=== PATIENT | female | born 1955 | race American Indian/Alaskan Native ===

== ENCOUNTER 2019-02-27 18:15 | Inpatient (IN) | payer MEDICAID ==
[2019-02-27 19:44] LABS: Basophils % (Auto) 0.2 % (0.0-1.8); Eosinophils % (Auto) 0.4 % (0.0-4.3); Lymphocytes # (Auto) 1.5 K/mm3 (1.2-5.4); Lymphocytes % (Auto) 18.4 % (13.4-35.0); Mean Corpuscular HGB Conc 34 % (30-34); Mean Corpuscular Volume 91 fl (79-97); Monocytes # (Auto) 0.4 K/mm3 (0.0-0.8); Monocytes % (Auto) 5.3 % (0.0-7.3); Platelet Count 204 K/mm3 (140-440); Red Blood Count 1.89 M/mm3 (3.65-5.03); Red Cell Distribution Width 18.9 % (13.2-15.2)
[2019-02-27 19:49] LABS: Hematocrit 17.2 % (30.3-42.9); Hemoglobin 5.9 gm/dl (10.1-14.3)
[2019-02-27 19:51] LABS: INR 1.13 (0.87-1.13)
[2019-02-27 19:52] LABS: Partial Thromboplastin Time 23.6 Sec. (24.2-36.6)
[2019-02-27 20:02] LABS: BUN/Creatinine Ratio 55; Blood Urea Nitrogen 44 mg/dL (7-17); Calcium 8.1 mg/dL (8.4-10.2); Hemolysis Index 9
[2019-02-27] MEDS ORDERED: NACL 0.9% 500 ML 500 ML IV ONE ×2 (20:09→23:45)
[2019-02-27] MEDS ORDERED: ATIVAN IV ONE (20:09)
[2019-02-27] MEDS ORDERED: ATIVAN ONE (20:12)
--- NOTE | 2019-02-27 20:15 | Emergency Department Report ---
ED Chest Pain HPI - General Chief Complaint: Chest Pain Stated Complaint: CHEST PAIN Time Seen by Provider: 02/27/19 18:31 Source: patient, EMS Mode of arrival: Stretcher Limitations: Physical Limitation - History of Present Illness Initial Comments: 63-year-old female, currently resides in [place], with history of CHF w/ pacemaker and on a milrinone drip, CAD, COPD, anxiety presents to ED with complaint of chest pain since this morning, became worse this afternoon. States pain is substernal, radiating into left arm. Reports SOB due to her oxygen tank running out. Pt chronically on 3-3.5L O2 at home. Pt crying and anxious, but denies chest pain at this time. Given aspirin by EMS. -: This morning Onset: during rest Pain Location: substernal Pain Radiation: LUE Severity: moderate Quality: sharp Consistency: constant, now resolved Improves With: nothing Worsens With: nothing re: dyspnea. denies: nausea, vomting, diaphoresis - Related Data Home Medications Medication Instructions Recorded Confirmed Last Taken Amiodarone HCl [Pacerone] 400 mg PO DAILY 08/27/18 09/28/18 09/28/18 AtorvaSTATin [Lipitor] 80 mg PO DAILY 08/27/18 09/28/18 09/28/18 Carvedilol [Coreg] 3.125 mg PO BID 08/27/18 09/28/18 09/28/18 Docusate Sodium [Stool Softener] 100 mg PO BID 08/27/18 09/28/18 09/28/18 Losartan Potassium 12.5 mg PO DAILY 08/27/18 09/28/18 09/28/18 Magnesium Oxide 400 mg PO DAILY 08/27/18 09/28/18 09/28/18 Pantoprazole Sodium 40 mg PO DAILY 08/27/18 09/28/18 09/28/18 Spironolactone 37.5 mg PO DAILY 08/27/18 09/28/18 09/28/18 hydrOXYzine HCl [Hydroxyzine HCl] 25 mg PO TID 08/27/18 09/28/18 09/28/18 Previous Rx's Medication Instructions Recorded Last Taken Type ALBUTEROL NEB's [Proventil 0.083% 2.5 mg IH Q4HRT PRN #30 nebu 10/06/18 Unknown Rx NEBS] Aspirin EC [Aspirin Enteric Coated 81 mg PO DAILY #30 tablet 10/06/18 Unknown Rx TAB] Bumetanide [Bumex 1 mg tab] 1 mg PO QDAY #30 tablet 10/06/18 Unknown Rx Clopidogrel [Plavix] 75 mg PO QDAY #30 tablet 10/06/18 Unknown Rx Gabapentin [Neurontin] 600 mg PO TID #90 tablet 10/06/18 Unknown Rx Insulin Glargine [Lantus VIAL] 30 units SUB-Q DAILY 30 Days units 10/06/18 Unknown Rx Levothyroxine [Synthroid] 25 mcg PO DAILY #30 tablet 10/06/18 Unknown Rx oxyCODONE /ACETAMINOPHEN [Percocet 1 tab PO Q8H PRN #6 tablet 10/06/18 Unknown Rx 5/325 mg] Allergies Allergy/AdvReac Type Severity Reaction Status Date / Time No Known Allergies Allergy Unverified 08/27/18 09:22 Heart Score - HEART Score History: Slightly suspicious EKG: Non-specific Age: 45-65 Risk factors: > 3 risk factors or hx of atherosclerotic disease Troponin: < normal limit HEART Score: 4 ED Review of Systems ROS: Stated complaint: CHEST PAIN Other details as noted in HPI Comment: All other systems reviewed and negative Respiratory: shortness of breath Cardiovascular: chest pain Gastrointestinal: denies: abdominal pain, nausea, vomiting ED Past Medical Hx - Past Medical History Hx CVA: Yes Hx Asthma: Yes Hx COPD: Yes - Surgical History Past Surgical History?: Yes Hx Pacemaker: Yes - Social History Smoking Status: Unknown if ever smoked - Medications Home Medications: Home Medications Medication Instructions Recorded Confirmed Last Taken Type Amiodarone HCl [Pacerone] 400 mg PO DAILY 08/27/18 09/28/18 09/28/18 History AtorvaSTATin [Lipitor] 80 mg PO DAILY 08/27/18 09/28/18 09/28/18 History Carvedilol [Coreg] 3.125 mg PO BID 08/27/18 09/28/18 09/28/18 History Docusate Sodium [Stool Softener] 100 mg PO BID 08/27/18 09/28/18 09/28/18 History Losartan Potassium 12.5 mg PO DAILY 08/27/18 09/28/18 09/28/18 History Magnesium Oxide 400 mg PO DAILY 08/27/18 09/28/18 09/28/18 History Pantoprazole Sodium 40 mg PO DAILY 08/27/18 09/28/18 09/28/18 History Spironolactone 37.5 mg PO DAILY 08/27/18 09/28/18 09/28/18 History hydrOXYzine HCl [Hydroxyzine HCl] 25 mg PO TID 08/27/18 09/28/18 09/28/18 History ALBUTEROL NEB's [Proventil 0.083% 2.5 mg IH Q4HRT PRN #30 nebu 10/06/18 Unknown Rx NEBS] Aspirin EC [Aspirin Enteric Coated 81 mg PO DAILY #30 tablet 10/06/18 Unknown Rx TAB] Bumetanide [Bumex 1 mg tab] 1 mg PO QDAY #30 tablet 10/06/18 Unknown Rx Clopidogrel [Plavix] 75 mg PO QDAY #30 tablet 10/06/18 Unknown Rx Gabapentin [Neurontin] 600 mg PO TID #90 tablet 10/06/18 Unknown Rx Insulin Glargine [Lantus VIAL] 30 units SUB-Q DAILY 30 Days units 10/06/18 Unknown Rx Levothyroxine [Synthroid] 25 mcg PO DAILY #30 tablet 10/06/18 Unknown Rx oxyCODONE /ACETAMINOPHEN [Percocet 1 tab PO Q8H PRN #6 tablet 10/06/18 Unknown Rx 5/325 mg] ED Physical Exam - General Limitations: Physical Limitation General appearance: alert, in no apparent distress, anxious - Head Head exam: Present: atraumatic, normocephalic - Eye Eye exam: Present: normal appearance - ENT ENT exam: Present: mucous membranes moist - Neck Neck exam: Present: normal inspection - Respiratory Respiratory exam: Present: normal lung sounds bilaterally. Absent: respiratory distress - Cardiovascular Cardiovascular Exam: Present: regular rate, normal rhythm - GI/Abdominal GI/Abdominal exam: Present: soft. Absent: distended, tenderness - Rectal Rectal exam: Present: heme (+) stool, black stool - Extremities Exam Extremities exam: Present: normal inspection - Neurological Exam Neurological exam: Present: alert, oriented X3 - Psychiatric Psychiatric exam: Present: normal affect, normal mood - Skin Skin exam: Present: warm, dry, intact, normal color ED Course Vital Signs 02/27/19 02/27/19 02/27/19 18:27 19:33 20:00 Temperature 97.6 F Pulse Rate 65 89 91 H Respiratory 20 19 20 Rate Blood Pressure 104/62 121/64 Blood Pressure 117/60 [Left] O2 Sat by Pulse 100 93 100 Oximetry - Reevaluation(s) Reevaluation #1: 02/27/19 20:08 Hb 5.9. Pt reports dark stools since yesterday. Takes plavix. On exam, melanotic stool, guiac positive. - Consultations Consultation #1: 02/27/19 21:19 Spoke w/ Dr Sigifredo Kuo GI. Aware of pt. Will see in the AM. ED Medical Decision Making - Lab Data Result diagrams: 02/27/19 19:30 02/27/19 19:30 - EKG Data -: EKG Interpreted by Me EKG shows normal: sinus rhythm Rate: normal - EKG Data When compared to previous EKG there are: no significant change (compared to 08/2018) Interpretation: other (prolonged QT, T wave inversions laterally) - Radiology Data Radiology results: report reviewed, image reviewed - Medical Decision Making 63-year-old female from [place] with history of CHF w/ pacemaker and on a milrinone drip, CAD, COPD, anxiety presents to ED with complaint of chest pain since this morning, became worse this afternoon. States pain is substernal, radiating into left arm. Troponin negative, EKG unchanged compared to 2017. Hb 5.9, pt has melena on rectal exam. One unit PRBCs ordered for transfusion. Protonix bolus and drip administered. Spoke w/ Dr Kuo, GI. Will see in the AM. Spoke w/ hospitalist, Dr Fritz, will admit. - Differential Diagnosis ACS, acute anemia, bleeding ulcer, malignancy Critical Care Time: Yes Critical care time in (mins) excluding proc time.: 35 Critical care attestation.: If time is entered above; I have spent that time in minutes in the direct care of this critically ill patient, excluding procedure time. Critical Care Time: 35 min ED Disposition Clinical Impression: Chest pain, Anemia, GI bleed Disposition: OP ADMIT IP TO THIS HOSP Is pt being admited?: Yes Condition: Stable Time of Disposition: 20:19
[2019-02-27] MEDS ORDERED: PROTONIX IV ONE (20:18)
--- NOTE | 2019-02-27 20:18 | XRay Report ---
PROCEDURE: XR CHEST 1V AP TECHNIQUE: Chest radiograph single view. HISTORY: chest pain COMPARISONS: 09/28/2018 . FINDINGS: Heart: Heart is enlarged. Mediastinum/Vessels: Normal. Lungs/Pleural space: Lungs are expanded and clear. There are no infiltrates, effusions or pneumothor aces.. Bony thorax: No acute osseous abnormality. Life support devices: There is a right-sided central venous catheter with tip in superior vena cava. Pacemaker leads are in proper position.. IMPRESSION: Heart is enlarged. Lungs are expanded and clear. There are no infiltrates, effusions or pneumothoraces.. There is a right-sided central venous catheter with tip in superior vena cava. Pacemaker leads are in proper position... This document is electronically signed by Dharmesh Montes MD., February 27 2019 08:16:10 PM ET
[2019-02-27] MEDS: PROTONIX 80 MG in NACL 0.9% 100 ML IV SCH (21:10)
[2019-02-27] MEDS ORDERED: ATIVAN IV PRN (22:10)
[2019-02-27] MEDS ORDERED: TYLENOL PR PRN (22:11)
[2019-02-27] MEDS ORDERED: ZOFRAN IV PRN (22:11)
[2019-02-28] MEDS ORDERED: NITROSTAT SL PRN (05:12)
[2019-02-28 05:44] LABS: Hematocrit 21.6 % (30.3-42.9); Hemoglobin 7.4 gm/dl (10.1-14.3)
[2019-02-28] MEDS: PROTONIX 80 MG in NACL 0.9% 100 ML IV SCH (05:49)
--- NOTE | 2019-02-28 06:03 | History and Physical Report ---
CHIEF COMPLAINT: Chest pain. Other complaint include dark stool or melena stool. HISTORY OF PRESENT ILLNESS: The patient is a 63-year-old female, who is currently staying in [place] and presented with complaint of chest pain that started in the morning of 02/27/2019. The patient said the pain became increasingly worse and said the pain is substernal in location, radiating to the left arm and was associated with shortness of breath. The patient also complained of anxiety and presence of dark stool going on for some time. There is no history of abdominal pain and no history of nausea or vomiting or hematemesis or hematochezia. The patient was seen and evaluated in the Emergency Room. PAST MEDICAL HISTORY: Pertinent for cerebrovascular accident, asthma, COPD and CHF. PAST SURGICAL HISTORY: Pertinent for pacemaker placement. FAMILY HISTORY: Noncontributory. SOCIAL HISTORY: The patient does not smoke, does not drink alcohol and does not use illicit drugs. MEDICATIONS: The patient is on amiodarone 400 mg by mouth daily, Lipitor 80 mg by mouth daily, Coreg 3.125 mg by mouth twice daily, stool softener, docusate sodium 100 mg by mouth twice daily, losartan potassium 12.5 mg by mouth daily, magnesium oxide 400 mg by mouth daily, pantoprazole 40 mg by mouth daily, spironolactone dose not clear, hydroxyzine hydrochloride 25 mg by mouth 3 times daily, albuterol nebulizer 2.5 mg every 4 hours as needed for shortness of breath, aspirin 81 mg daily, Bumex or bumetanide 1 mg by mouth daily, Plavix 75 mg by mouth daily, gabapentin or Neurontin 600 mg by mouth 3 times daily, Lantus insulin 30 units subcutaneous daily, levothyroxine or Synthroid 25 mcg by mouth daily, Percocet, oxycodone/acetaminophen 5/325 one by mouth every 8 hours as needed for fever and headache. ALLERGIES: There are no known drug allergies. REVIEW OF SYSTEMS: CONSTITUTIONAL: There is no fever, no chills, no diaphoresis. HEENT: There is no headache or sore throat. CARDIOVASCULAR SYSTEM: There is chest pain, but no orthopnea. RESPIRATORY SYSTEM: Shortness of breath is present and no cough. GASTROINTESTINAL SYSTEM: There is no nausea, no vomiting, no abdominal pain, diarrhea or constipation; however, there is dark stool or melena stool. NEUROLOGICAL SYSTEM: There is no numbness, no dizziness, no altered mental status. MUSCULOSKELETAL SYSTEM: There is no joint pain or swelling. DERMATOLOGICAL SYSTEM: There is no skin rash or itching. GENITOURINARY SYSTEM: There is no dysuria, hematuria, or flank pain. Rest of system review is normal. PHYSICAL EXAMINATION: GENERAL: At the time of exam, the patient was found to be alert, oriented x 3 and not in acute distress. VITAL SIGNS: Shows temperature of 97.6 degrees Fahrenheit, pulse of 65, respirations 20, blood pressure 104/62, O2 sat of 100% on room air. HEENT: Showed pupils to be equal, round, and reactive to light and accommodating. Extraocular muscles are intact. NECK: Supple with no JVD or carotid bruit. CARDIOVASCULAR SYSTEM: Showed normal first and second heart sounds with no gallops or murmurs. RESPIRATORY SYSTEM: Show good air entry on both sides of the lungs with no abnormal breath sounds. GASTROINTESTINAL SYSTEM: Show abdomen to be full, soft, nontender with no organomegaly or rigidity. NEUROLOGICAL: Shows no focal deficit. MUSCULOSKELETAL SYSTEM: Show no joint swelling or tenderness. DERMATOLOGICAL SYSTEM: Show no skin rash. GENITOURINARY SYSTEM: Showing no costovertebral angle tenderness. PERTINENT LABORATORY DATA AND IMAGING STUDIES: The patient had chest x-ray done that shows enlarged heart with clear lung and the x-ray shows right-sided central venous catheter with tip in the superior vena cava and pacemaker leads are in the proper position according to the radiologist. Lab results, the patient has CBC done with normal white count, low hemoglobin of 5.9 and low hematocrit of 17.2 with normal MCV and elevated RDW of 18.9. The patient's CBC differential showed high segmented neutrophil count of 75.7%. Coagulation studies were unremarkable. The patient's chemistry shows slight decrease in sodium level of 136 with normal potassium, normal chloride and elevated BUN of 44 and elevated brain natriuretic peptide level of 1649.Patient's stool is quiac positive DIAGNOSES: 1. Chest pain. 2. Gastrointestinal bleed. 3. Anemia. 4. Anxiety disorder. PLAN: 1. The patient will be admitted to telemetry. 2. The patient will have serial cardiac enzymes involving troponin, total CK and CK-MB checked every 6 hours x 2 more levels. 3. The patient will have hemoglobin and hematocrit checked every 6 hours x 3 more levels. 4. The patient will have Gastroenterology consult with Dr. Alvaro Kuo of [facility] for management of GI bleed. 5. The patient will be n.p.o. until seen by the resistor inspector. 6. The patient will be on IV Ativan 1 mg every 4 hours as needed for anxiety. 7. The patient will be on Nitrostat 0.4 mg sublingual every 5 minutes as needed for chest pain and will be on IV morphine 2 mg every 3 hours as needed for pain and IV Zofran 4 mg every 8 hours for nausea and vomiting. 8. The patient will continue Protonix drip started in the Emergency Room. 9. The patient will be on oxygen by nasal cannula at 2 liters per minute. 10. The patient will have Cardiology consult with Dr. Jefferson for management of chest pain with history of pacemaker placement and having gastrointestinal bleed. 11. The patient will be on Tylenol 650 mg rectally IV every 4 hours for fever and headache and IV Zofran 4 mg every 8 hours for nausea and vomiting. JOB# [id number] OCN/NTS MTDD
[2019-02-28 06:59] LABS: Creatine Kinase MB 35.4 ng/mL (0.0-4.0)
[2019-02-28 08:02] LABS: Chol/HDL Ratio 3.11 %
--- NOTE | 2019-02-28 10:39 | Gastroenterology Consultation ---
<KYM ANGELA - Last Filed: 02/28/19 11:19> History of Present Illness - Reason for Consult Consult date: 02/28/19 GI bleed Requesting physician: SMITH CRUZ - History of Present Illness Patient is a 63 y/o female with PMH of COPD (on home O2), CVA, HTN, CHF (s/p ICD placement), CAD (s/p PCI 08/2018), anxiety, hypothyroidism, and hyperlipidemia who presented to ED with c/o chest pain. Upon admission, she was found to have anemia with H/H 5.9/17.1 and heme + black stool per ER provider exam to which GI has been consulted. This morning patient was resting in bed w/o acute distress. She reports feeling better with CP now resolved s/p blood transfusion. Admits to having black stool x 2 days. No hematemesis or hematochezia. Denies fever, SOB, wt loss, dizziness, abd pain, N/V, diarrhea , or constipation. Takes ASA and plavix at home (last dose yesterday). No hx of PUD or prior EGD. Past History Past Medical History: other (as per HPI) Past Surgical History: Other (s/p coronary stent, s/p ICD placement) Social history: denies: smoking, alcohol abuse Family history: hypertension Medications and Allergies Allergies Allergy/AdvReac Type Severity Reaction Status Date / Time No Known Allergies Allergy Unverified 08/27/18 09:22 Home Medications Medication Instructions Recorded Confirmed Last Taken Type Amiodarone HCl [Pacerone] 400 mg PO DAILY 08/27/18 02/27/19 09/28/18 History AtorvaSTATin [Lipitor] 80 mg PO DAILY 08/27/18 02/27/19 09/28/18 History Carvedilol [Coreg] 3.125 mg PO BID 08/27/18 02/27/19 09/28/18 History Docusate Sodium [Stool Softener] 100 mg PO BID 08/27/18 02/27/19 09/28/18 History Losartan Potassium 12.5 mg PO DAILY 08/27/18 02/27/19 09/28/18 History Magnesium Oxide 400 mg PO DAILY 08/27/18 02/27/19 09/28/18 History Pantoprazole Sodium 40 mg PO DAILY 08/27/18 02/27/19 09/28/18 History Spironolactone 25 mg PO DAILY 08/27/18 02/27/19 09/28/18 History hydrOXYzine HCl [Hydroxyzine HCl] 25 mg PO TID 08/27/18 02/27/19 09/28/18 History ALBUTEROL NEB's [Proventil 0.083% 2.5 mg IH Q4HRT PRN #30 nebu 10/06/18 02/27/19 Unknown Rx NEBS] Aspirin EC [Aspirin Enteric Coated 81 mg PO DAILY #30 tablet 10/06/18 02/27/19 Unknown Rx TAB] Bumetanide [Bumex 1 mg tab] 1 mg PO QDAY #30 tablet 10/06/18 02/27/19 Unknown Rx Clopidogrel [Plavix] 75 mg PO QDAY #30 tablet 10/06/18 02/27/19 Unknown Rx Gabapentin [Neurontin] 600 mg PO TID #90 tablet 10/06/18 02/27/19 Unknown Rx Insulin Glargine [Lantus VIAL] 30 units SUB-Q DAILY 30 Days units 10/06/18 02/27/19 Unknown Rx Levothyroxine [Synthroid] 25 mcg PO DAILY #30 tablet 10/06/18 02/27/19 Unknown Rx oxyCODONE /ACETAMINOPHEN [Percocet 1 tab PO Q8H PRN #6 tablet 10/06/18 02/27/19 Unknown Rx 5/325 mg] Calcium Acetate 667 mg PO TID 02/27/19 02/27/19 Unknown History Clopidogrel [Plavix] 75 mg PO DAILY 02/27/19 02/27/19 Unknown History Isosorbide Dinitrate [Isordil 10 mg PO TID 02/27/19 02/27/19 Unknown History Titradose] Losartan [Cozaar] 12.5 mg PO QDAY 02/27/19 02/27/19 Unknown History hydrALAZINE [Apresoline TAB] 10 mg PO Q8H 02/27/19 02/27/19 Unknown History Active Meds: Active Medications Acetaminophen (Tylenol) 650 mg [place] Q4H PRN PRN Reason: Fever >101 Pantoprazole Sodium 80 mg/ (Sodium Chloride) 100 mls @ 10 mls/hr IV DIRECT MARILUZ Last Admin: 02/28/19 05:49 Dose: 8 mg/hr, 10 mls/hr Documented by: Lorazepam (Ativan) 1 mg IV Q4H PRN PRN Reason: Anxiety Nitroglycerin (Nitrostat) 0.4 mg SL .Q5MIN PRN PRN Reason: Chest Pain Ondansetron HCl (Zofran) 4 mg IV Q8H PRN PRN Reason: Nausea And Vomiting medications reviewed/updated as required Review of Systems - Review of Systems All systems: negative Cardiovascular: chest pain (resolved) Respiratory: shortness of breath (improved) Gastrointestinal: melena Exam - Constitutional Vital Signs: Temp Pulse Resp BP Pulse Ox 97.9 F 82 16 130/77 100 02/28/19 07:39 02/28/19 07:39 02/28/19 07:39 02/28/19 07:39 02/28/19 07:39 General appearance: no acute distress - EENT Eyes: PERRL, EOM intact ENT: hearing intact - Respiratory Respiratory: bilateral: diminished - Cardiovascular Rhythm: regular - Gastrointestinal General gastrointestinal: Present: soft, non-tender, non-distended, normal bowel sounds - Neurologic Neurological: alert and oriented x3 - Labs CBC & Chem 7: 02/28/19 05:21 02/27/19 19:30 Lab Results: Laboratory Results - last 24 hr 02/27/19 02/27/19 02/27/19 19:30 19:30 19:30 WBC 8.4 RBC 1.89 L Hgb 5.9 L* Hct 17.2 L* MCV 91 MCH 31 MCHC 34 RDW 18.9 H Plt Count 204 Lymph % (Auto) 18.4 Eddy % (Auto) 5.3 Eos % (Auto) 0.4 Baso % (Auto) 0.2 Lymph # 1.5 Eddy # 0.4 Eos # 0.0 Baso # 0.0 Seg Neutrophils % 75.7 H Seg Neutrophils # 6.3 PT 15.2 H INR 1.13 APTT 23.6 L Sodium 136 L Potassium 3.9 Chloride 103.1 Carbon Dioxide 20 L Anion Gap 17 BUN 44 H Creatinine 0.8 Estimated GFR > 60 BUN/Creatinine Ratio 55 Glucose 105 H Calcium 8.1 L Total Creatine Kinase CK-MB (CK-2) CK-MB (CK-2) Rel Index Troponin T < 0.010 NT-Pro-B Natriuret Pep Triglycerides Cholesterol LDL Cholesterol Direct HDL Cholesterol Cholesterol/HDL Ratio Blood Type Antibody Screen Crossmatch 02/27/19 02/27/19 02/27/19 19:30 20:33 20:35 WBC RBC Hgb Hct MCV MCH MCHC RDW Plt Count Lymph % (Auto) Eddy % (Auto) Eos % (Auto) Baso % (Auto) Lymph # Eddy # Eos # Baso # Seg Neutrophils % Seg Neutrophils # PT INR APTT Sodium Potassium Chloride Carbon Dioxide Anion Gap BUN Creatinine Estimated GFR BUN/Creatinine Ratio Glucose Calcium Total Creatine Kinase CK-MB (CK-2) CK-MB (CK-2) Rel Index Troponin T < 0.010 NT-Pro-B Natriuret Pep 1649 H Triglycerides Cholesterol LDL Cholesterol Direct HDL Cholesterol Cholesterol/HDL Ratio Blood Type O POSITIVE Antibody Screen Negative Crossmatch See Detail 02/28/19 02/28/19 05:21 05:59 WBC RBC Hgb 7.4 L Hct 21.6 L MCV MCH MCHC RDW Plt Count Lymph % (Auto) Eddy % (Auto) Eos % (Auto) Baso % (Auto) Lymph # Eddy # Eos # Baso # Seg Neutrophils % Seg Neutrophils # PT INR APTT Sodium Potassium Chloride Carbon Dioxide Anion Gap BUN Creatinine Estimated GFR BUN/Creatinine Ratio Glucose Calcium Total Creatine Kinase 196 H CK-MB (CK-2) 35.4 H CK-MB (CK-2) Rel Index 18.0 H Troponin T 0.212 H* D NT-Pro-B Natriuret Pep Triglycerides 91 Cholesterol 112 LDL Cholesterol Direct 64 HDL Cholesterol 36 L Cholesterol/HDL Ratio 3.11 Blood Type Antibody Screen Crossmatch Assessment and Plan 1.UGIB 2.melena 3.acute blood loss anemia -H/H 7.4/21.6 s/p transfusion 1 unit PRBCs (5.9/17.2 on admission) -continue to monitor H/H and transfuse as needed -patient reports black stool x 2 days-no hematemesis or hematochezia -no active signs of bleeding this am- currently HD stable -etiology-possible ulcer vs other -will schedule for EGD today (spoke with cardiology-patient is a high risk but no immediate contraindications from proceeding with endoscopy; recommend transfusion of 2 more units of PRBCs for HGB >10 to help with demand/ischemia) -Keep NPO -continue protonix drip -continue to hold blood thinning medications (plavix on hold) -continue supportive care -will follow 4.CP 5.elevated troponin-cardiology following 6.Hx of CAD (s/p PCI 08/2018) 7.CHF 8.COPD 9.Hx of CVA <ANNABEL CONROY - Last Filed: 02/28/19 13:29> Medications and Allergies Active Meds: Active Medications Acetaminophen (Tylenol) 650 mg IL Q4H PRN PRN Reason: Fever >101 Pantoprazole Sodium 80 mg/ (Sodium Chloride) 100 mls @ 10 mls/hr IV DIRECT MARILUZ Last Admin: 02/28/19 05:49 Dose: 8 mg/hr, 10 mls/hr Documented by: Sodium Chloride (Nacl 0.9% 1000 Ml) 1,000 mls @ 50 mls/hr IV DIRECT MARILUZ Last Admin: 02/28/19 12:16 Dose: 50 mls/hr Documented by: Milrinone Lactate/Dextrose (Milrinone-D5w 20 Mg/100 Ml) 20 mg in 100 mls @ 4.763 mls/hr IV TITR MARILUZ Lorazepam (Ativan) 1 mg IV Q4H PRN PRN Reason: Anxiety Nitroglycerin (Nitrostat) 0.4 mg SL .Q5MIN PRN PRN Reason: Chest Pain Ondansetron HCl (Zofran) 4 mg IV Q8H PRN PRN Reason: Nausea And Vomiting Exam - Constitutional Vital Signs: Temp Pulse Resp BP Pulse Ox 97.7 F 80 20 93/56 100 02/28/19 11:58 02/28/19 11:58 02/28/19 11:58 02/28/19 11:58 02/28/19 11:58 - Labs CBC & Chem 7: 02/28/19 05:21 02/27/19 19:30 Lab Results: Laboratory Results - last 24 hr 02/27/19 02/27/19 02/27/19 19:30 19:30 19:30 WBC 8.4 RBC 1.89 L Hgb 5.9 L* Hct 17.2 L* MCV 91 MCH 31 MCHC 34 RDW 18.9 H Plt Count 204 Lymph % (Auto) 18.4 Eddy % (Auto) 5.3 Eos % (Auto) 0.4 Baso % (Auto) 0.2 Lymph # 1.5 Eddy # 0.4 Eos # 0.0 Baso # 0.0 Seg Neutrophils % 75.7 H Seg Neutrophils # 6.3 PT 15.2 H INR 1.13 APTT 23.6 L Sodium 136 L Potassium 3.9 Chloride 103.1 Carbon Dioxide 20 L Anion Gap 17 BUN 44 H Creatinine 0.8 Estimated GFR > 60 BUN/Creatinine Ratio 55 Glucose 105 H Calcium 8.1 L Total Creatine Kinase CK-MB (CK-2) CK-MB (CK-2) Rel Index Troponin T < 0.010 NT-Pro-B Natriuret Pep Triglycerides Cholesterol LDL Cholesterol Direct HDL Cholesterol Cholesterol/HDL Ratio Blood Type Antibody Screen Crossmatch 02/27/19 02/27/19 02/27/19 19:30 20:33 20:35 WBC RBC Hgb Hct MCV MCH MCHC RDW Plt Count Lymph % (Auto) Eddy % (Auto) Eos % (Auto) Baso % (Auto) Lymph # Eddy # Eos # Baso # Seg Neutrophils % Seg Neutrophils # PT INR APTT Sodium Potassium Chloride Carbon Dioxide Anion Gap BUN Creatinine Estimated GFR BUN/Creatinine Ratio Glucose Calcium Total Creatine Kinase CK-MB (CK-2) CK-MB (CK-2) Rel Index Troponin T < 0.010 NT-Pro-B Natriuret Pep 1649 H Triglycerides Cholesterol LDL Cholesterol Direct HDL Cholesterol Cholesterol/HDL Ratio Blood Type O POSITIVE Antibody Screen Negative Crossmatch See Detail 02/28/19 02/28/19 05:21 05:59 WBC RBC Hgb 7.4 L Hct 21.6 L MCV MCH MCHC RDW Plt Count Lymph % (Auto) Eddy % (Auto) Eos % (Auto) Baso % (Auto) Lymph # Eddy # Eos # Baso # Seg Neutrophils % Seg Neutrophils # PT INR APTT Sodium Potassium Chloride Carbon Dioxide Anion Gap BUN Creatinine Estimated GFR BUN/Creatinine Ratio Glucose Calcium Total Creatine Kinase 196 H CK-MB (CK-2) 35.4 H CK-MB (CK-2) Rel Index 18.0 H Troponin T 0.212 H* D NT-Pro-B Natriuret Pep Triglycerides 91 Cholesterol 112 LDL Cholesterol Direct 64 HDL Cholesterol 36 L Cholesterol/HDL Ratio 3.11 Blood Type Antibody Screen Crossmatch Assessment and Plan Pt was well until 02/26 PM, when she developed diarrhea with black stool, with 10 BMs, last at 1030 AM yesterday. No prior GI bleed or hx of PUD. She came in for chest pain and was found to profoundly anemic. Last Plavix dose yesterday, for PCI with stent in 08/2019. Likely PUD. Seems to have stopped bleeding acutely. Will do EGD tomorrow, after stabilization and transfusion. IV PPI
--- NOTE | 2019-02-28 10:57 | Consultation ---
History of Present Illness Consult date: 02/28/19 Requesting physician: RAFY KILLIAN Consult reason: chest pain History of present illness: Patient is a 63 y/o female with a history significant for heart failure on home milrinone (per patient, prescribed by doctor in [place]) and home oxygen (3-3.5L) CMP, AICD ([employer], placed in 2003 per EMR), CAD s/p stents in August 2018, reported AMI, hypertension, hyperlipidemia and CVA who presented to the [facility] ED for increasing SOB and CP. She reports that she was en route to [place] after a in the family when she became short of breath and experienced stabbing chest pain. The pain resolved prior to arrival to the ED. Troponins negative x2, then elevated to .212 this AM. Notably, hemoglobin found to be 5.9, which increased to 7.4 after 1 unit of PRBCs. She endorses black, tarry stools and a FOBT was positive. She was started on a Protonix drip. GI was consulted and plans for EGD. A Lexiscan stress test on 08/28/18 at [facility] found inferoapical partially fixed defect, inferoseptal fixed defect and an EF of 21 percent. Subsequent LHC done by Dr. Tara Winston on 08/29/18 found severe CAD with heavy left-sided calcifications with eccentric large volume calcified 90 percent proximal LAD stenosis, 20 percent distal LM and cx without significant disease. Left ventriculography revealed severe global LV hypokinesis and an estimated EF of 15 to 20 percent. During the procedure, she experienced a VT arrest. She was subsequently transferred to [place] for rotablation of proximal LAD and stenting. On August 31, 2018, angiography revealed 50 to 60 percent R EIA stenosis and 99 percent proximal left ASHLEY with heavy calcification, 80 percent calcified mid-LAD s/p PCI with 2 LIZBETH and 70 percent ostial LAD s/p PCI with LIZBETH in the LM into LAD. An echocardiogram done at [facility] in [place], [place], found a severely dilated LV, LVEF of 29 percent, global LV hypokinesis and [id number] MR. Past History Past Medical History: acute [place], CAD, heart failure, hypertension, hyperlipidemia Past Surgical History: PTCA Medications and Allergies Allergies Allergy/AdvReac Type Severity Reaction Status Date / Time No Known Allergies Allergy Unverified 08/27/18 09:22 Home Medications Medication Instructions Recorded Confirmed Last Taken Type Amiodarone HCl [Pacerone] 400 mg PO DAILY 08/27/18 02/27/19 09/28/18 History AtorvaSTATin [Lipitor] 80 mg PO DAILY 08/27/18 02/27/19 09/28/18 History Carvedilol [Coreg] 3.125 mg PO BID 08/27/18 02/27/19 09/28/18 History Docusate Sodium [Stool Softener] 100 mg PO BID 08/27/18 02/27/19 09/28/18 Hi story Losartan Potassium 12.5 mg PO DAILY 08/27/18 02/27/19 09/28/18 History Magnesium Oxide 400 mg PO DAILY 08/27/18 02/27/19 09/28/18 History Pantoprazole Sodium 40 mg PO DAILY 08/27/18 02/27/19 09/28/18 History Spironolactone 25 mg PO DAILY 08/27/18 02/27/19 09/28/18 History hydrOXYzine HCl [Hydroxyzine HCl] 25 mg PO TID 08/27/18 02/27/19 09/28/18 History ALBUTEROL NEB's [Proventil 0.083% 2.5 mg IH Q4HRT PRN #30 nebu 10/06/18 02/27/19 Unknown Rx NEBS] Aspirin EC [Aspirin Enteric Coated 81 mg PO DAILY #30 tablet 10/06/18 02/27/19 Unknown Rx TAB] Bumetanide [Bumex 1 mg tab] 1 mg PO QDAY #30 tablet 10/06/18 02/27/19 Unknown Rx Clopidogrel [Plavix] 75 mg PO QDAY #30 tablet 10/06/18 02/27/19 Unknown Rx Gabapentin [Neurontin] 600 mg PO TID #90 tablet 10/06/18 02/27/19 Unknown Rx Insulin Glargine [Lantus VIAL] 30 units SUB-Q DAILY 30 Days units 10/06/18 Unknown Rx Levothyroxine [Synthroid] 25 mcg PO DAILY #30 tablet 10/06/18 02/27/19 Unknown Rx oxyCODONE /ACETAMINOPHEN [Percocet 1 tab PO Q8H PRN #6 tablet 10/06/18 02/27/19 Unknown Rx 5/325 mg] Calcium Acetate 667 mg PO TID 02/27/19 02/27/19 Unknown History Clopidogrel [Plavix] 75 mg PO DAILY 02/27/19 02/27/19 Unknown History Isosorbide Dinitrate [Isordil 10 mg PO TID 02/27/19 02/27/19 Unknown History Titradose] Losartan [Cozaar] 12.5 mg PO QDAY 02/27/19 02/27/19 Unknown History hydrALAZINE [Apresoline TAB] 10 mg PO Q8H 02/27/19 02/27/19 Unknown History Active Meds: Active Medications Acetaminophen (Tylenol) 650 mg [place] Q4H PRN PRN Reason: Fever >101 Pantoprazole Sodium 80 mg/ (Sodium Chloride) 100 mls @ 10 mls/hr IV DIRECT MARILUZ Last Admin: 02/28/19 05:49 Dose: 8 mg/hr, 10 mls/hr Documented by: Lorazepam (Ativan) 1 mg IV Q4H PRN PRN Reason: Anxiety Nitroglycerin (Nitrostat) 0.4 mg SL .Q5MIN PRN PRN Reason: Chest Pain Ondansetron HCl (Zofran) 4 mg IV Q8H PRN PRN Reason: Nausea And Vomiting Review of Systems Cardiovascular: shortness of breath, dyspnea on exertion Physical Examination Last Vital Signs Temp 97.9 F 02/28/19 07:39 Pulse 82 02/28/19 07:39 Resp 16 02/28/19 07:39 BP 130/77 02/28/19 07:39 Pulse Ox 100 02/28/19 10:45 General appearance: no acute distress Cardiac: Positive: Reg Rate and Rhythm, Systolic Murmur Lungs: Positive: Decreased Breath Sounds Extremities: Present: +2 Edema Results 02/28/19 05:21 02/27/19 19:30 Cardiac Enzymes 02/28/19 Range/Units 05:59 CK-MB (CK-2) 35.4 H (0.0-4.0) ng/mL Coagulation 02/27/19 Range/Units 19:30 PT 15.2 H (12.2-14.9) Sec. INR 1.13 (0.87-1.13) APTT 23.6 L (24.2-36.6) Sec. Lipids 05/01/19 Range/Units 05:59 Triglycerides 91 (2-149) mg/dL Cholesterol 112 (50-199) mg/dL HDL Cholesterol 36 L (40-59) mg/dL Cholesterol/HDL Ratio 3.11 % CBC 02/27/19 02/28/19 Range/Units 19:30 05:21 WBC 8.4 (4.5-11.0) K/mm3 RBC 1.89 L (3.65-5.03) M/mm3 Hgb 5.9 L* 7.4 L (10.1-14.3) gm/dl Hct 17.2 L* 21.6 L (30.3-42.9) % Plt Count 204 (140-440) K/mm3 Lymph # 1.5 (1.2-5.4) K/mm3 [place]anan # 0.4 (0.0-0.8) K/mm3 Eos # 0.0 (0.0-0.4) K/mm3 Baso # 0.0 (0.0-0.1) K/mm3 Comprehensive Metabolic Panel 02/27/19 Range/Units 19:30 Sodium 136 L (137-145) mmol/L Potassium 3.9 (3.6-5.0) mmol/L Chloride 103.1 (98-107) mmol/L Carbon Dioxide 20 L (22-30) mmol/L BUN 44 H (7-17) mg/dL Creatinine 0.8 (0.7-1.2) mg/dL Glucose 105 H (65-100) mg/dL Calcium 8.1 L (8.4-10.2) mg/dL - Imaging and Cardiology EKG: report reviewed - EKG Interpretation EKG: sinus rhythm EKG interpretations AV and intraventricular conduction: intraventricular conducti Assessment and Plan Patient is a 63 y/o female who presented with a history significant for HfrEF, CAD s/p PCI and ICM who presents for SOB and CP. She is on home milrinone. Hgb 5.9 with black, tarry stools per patient report and a positive FOBT. Received 1 u PRBC. GI planning EGD. She is high-risk, but she will receive two units of PRBCs. If Hgb improves to 10, she is cleared to proceed with EGD from cardiac standpoint. She is high-risk, but there are no other cardiac risk factors. Discussed with GI and hospitalist. Troponin elevated this AM, likely related to anemia. Will trend troponins and start milrinone at home dose. Patient seen in conjunction with Dr. Johnson, who agrees with assessment and plan. - Patient Problems (1) Anemia Current Visit: Yes Status: Acute (2) GI bleed Current Visit: Yes Status: Acute (3) NSTEMI (non-ST elevated myocardial infarction) Current Visit: Yes Status: Acute (4) Chest pain Current Visit: Yes Status: Acute Qualifiers: (5) Shortness of breath Current Visit: Yes Status: Acute (6) CAD S/P percutaneous coronary angioplasty Current Visit: Yes Status: Chronic (7) Automatic implantable cardioverter-defibrillator in situ Current Visit: No Status: Chronic (8) HTN (hypertension) Current Visit: No Status: Chronic (9) Ischemic cardiomyopathy Current Visit: No Status: Chronic (10) HFrEF (heart failure with reduced ejection fraction) Current Visit: Yes Status: Chronic Qualifiers: Heart failure chronicity: acute on chronic Qualified Code(s): I50.23 - Acute on chronic systolic (congestive) heart failure (11) Hemiparesis due to old cerebrovascular accident Current Visit: No Status: Chronic (12) Hyperlipidemia Current Visit: No Status: Chronic
[2019-02-28] MEDS: NACL 0.9% 1000 ML 1,000 ML IV SCH (12:16)
--- NOTE | 2019-02-28 12:19 | Anesthesia Day of Surgery ---
Anesthesia Day of Surgery - Day of Surgery Patient Examined: Yes Patient H&P Reviewed: Yes Patient is NPO: Yes Cardiac Clearance: Yes (high risk per cardiology but no intervention recommended prior to procedure)
--- NOTE | 2019-02-28 12:19 | Anesthesia Consultation ---
Anesthesia Consult and Med Hx Date of service: 02/28/19 - Airway Anesthetic Teeth Evaluation: Edentulous ROM Head & Neck: Adequate Mental/Hyoid Distance: Adequate Mallampati Class: Class III Intubation Access Assessment: Possibly Difficult - Pulmonary Exam CTA: Yes - Cardiac Exam Cardiac Exam: RRR (grade 3 systolic murmur) - Pre-Operative Health Status ASA Pre-Surgery Classification: ASA4 Proposed Anesthetic Plan: MAC - Pulmonary Hx Smoking: No Hx Asthma: Yes Hx Respiratory Symptoms: No COPD: Yes Home Oxygen Therapy: Yes (3-3.5L) - Cardiovascular System Hx Hypertension: Yes Hx Coronary Artery Disease: Yes Hx Heart Attack/AMI: Yes (08/2018) Hx Angina: Yes (on admission; now resolved) Hx Percutaneous Transluminal Coronary Angioplasty (PTCA): Yes (08/2018 LIZBETH to LAD and LM) Hx Pacemaker: Yes Hx Internal Defibrillator: Yes Hx Valvular Heart Disease: Yes (mild to moderate MR) - Central Nervous System CVA: Yes - Endocrine Hx Renal Disease: No Hx Liver Disease: No Hx Insulin Dependent Diabetes: No Hx Non-Insulin Dependent Diabetes: No Hx Thyroid Disease: No - Hematic Hx Anemia: Yes - Other Systems Hx Obesity: No - Additional Comments Anesthesia Medical History Comments: PMG CHF EF 30% on home milrinone, COPD on home O2, CAD s/p LIZBETH presenting with anemia presumed 2/2 GI blood loss scheduled for EGD. Mildly elevated troponin this admission likely 2/2 demand ischemia per cardiology. S/p 1 unit pRBCs.
[2019-02-28 14:14] LABS: Hematocrit 21.8 % (30.3-42.9); Hemoglobin 7.1 gm/dl (10.1-14.3)
[2019-02-28 14:50] LABS: Creatine Kinase MB 44.2 ng/mL (0.0-4.0)
[2019-02-28] MEDS ORDERED: NACL 0.9% 500 ML 500 ML IV ONE (14:58)
[2019-02-28] MEDS: MILRINONE-D5W 20 MG/100 ML 20 MG/100 ML BAG IV SCH (15:49)
[2019-02-28] MEDS ORDERED: NACL 0.9% 500 ML 500 ML IV SCH (16:43)
--- NOTE | 2019-02-28 16:48 | Event Note ---
Date: 02/28/19 patient seen and evaluated Active GI Bleed Elevated Troponin Transfuse PRBC For Endoscopy tomorrow GI and Cardiolgy consult appreciated
[2019-02-28 18:18] LABS: Hematocrit 20.3 % (30.3-42.9); Hemoglobin 6.8 gm/dl (10.1-14.3)
[2019-02-28] MEDS ORDERED: PROVENTIL IH PRN (22:38)
[2019-02-28] MEDS: NEURONTIN PO SCH (23:43)
[2019-02-28] MEDS: APRESOLINE PO SCH (23:43)
[2019-02-28] MEDS: PERCOCET 5/325 PO PRN (23:44)
[2019-02-28 23:50] LABS: Hematocrit 25.4 % (30.3-42.9); Hemoglobin 8.5 gm/dl (10.1-14.3)
[2019-03-01] MEDS: MILRINONE-D5W 20 MG/100 ML 20 MG/100 ML BAG IV SCH ×2 (01:24→18:39)
[2019-03-01] MEDS: APRESOLINE PO SCH ×3 (05:55→22:15)
[2019-03-01] MEDS: SYNTHROID PO SCH (06:55)
[2019-03-01 07:34] LABS: Basophils % (Auto) 0.4 % (0.0-1.8); Eosinophils # (Auto) 0.2 K/mm3 (0.0-0.4); Eosinophils % (Auto) 2.4 % (0.0-4.3); Hematocrit 23.9 % (30.3-42.9); Hemoglobin 8.2 gm/dl (10.1-14.3); Lymphocytes # (Auto) 1.1 K/mm3 (1.2-5.4); Lymphocytes % (Auto) 16.4 % (13.4-35.0); Mean Corpuscular HGB Conc 34 % (30-34); Mean Corpuscular Volume 90 fl (79-97); Monocytes # (Auto) 0.4 K/mm3 (0.0-0.8); Monocytes % (Auto) 5.3 % (0.0-7.3); Platelet Count 184 K/mm3 (140-440); Red Blood Count 2.65 M/mm3 (3.65-5.03); Red Cell Distribution Width 16.4 % (13.2-15.2)
[2019-03-01 07:51] LABS: Alanine Aminotransferase 17 units/L (7-56); Albumin 3.3 g/dL (3.9-5); BUN/Creatinine Ratio 20; Blood Urea Nitrogen 12 mg/dL (7-17); Calcium 7.6 mg/dL (8.4-10.2); Hemolysis Index 2
[2019-03-01] MEDS ORDERED: CALCIUM ACETATE 667 MG PO SCH (08:00)
[2019-03-01] MEDS ORDERED: NON-FORMULARY (Gabapentin [Neurontin] 600 MG) PO SCH (08:00)
[2019-03-01] MEDS: NACL 0.9% 1000 ML 1,000 ML IV SCH (09:45)
[2019-03-01] MEDS ORDERED: COZAAR PO SCH (10:00)
[2019-03-01] MEDS ORDERED: WATER FOR IRRIG STERILE IR ONE (10:03)
[2019-03-01] MEDS: ATARAX PO SCH ×3 (10:09→20:56)
[2019-03-01] MEDS: ISORDIL TITRADOSE PO SCH ×3 (10:09→20:55)
[2019-03-01] MEDS: PHOSLO PO SCH ×3 (10:10→17:06)
[2019-03-01] MEDS: NEURONTIN PO SCH ×3 (10:10→20:53)
--- NOTE | 2019-03-01 11:15 | Progress Note ---
Assessment and Plan 1. Anemia/melena - c/w GI bleed, due to PUD. No evidence of ongoing bleed x 48 hrs, with no BMs. Hgb this AM = 8.2. - needs EGD, but Hgb below desired level. Spoke with Dr. Simon, Cardiology, and he recommended getting Hgb up to 10 prior to endoscopy. Given lack of evidence of active bleeding, will hold off until threshold reached. - cont PPI - clear liquids - transfuse to H/H > 10 2. Back pain - defer to Hospitalist. Discussed with Dr. Sosa and with Dr. Simon. Subjective Date of service: 03/01/19 Interval history: Pt complains of back pain. No BMs over the last 24 hrs, no N/V. No CP or SOB. Objective - Constitutional Vitals: Vital Signs - 12hr 02/28/19 03/01/19 03/01/19 23:43 00:00 00:15 Temperature 94.6 F L Pulse Rate 84 80 Pulse Rate [ 84 Left Radial] Pulse Rate [ 84 Right Radial] Respiratory 18 20 Rate Blood Pressure 125/65 110/62 O2 Sat by Pulse 100 100 Oximetry 03/01/19 03/01/19 03/01/19 04:45 05:55 09:35 Temperature 98.2 F 97.2 F L Pulse Rate 82 80 81 Pulse Rate [ Left Radial] Pulse Rate [ Right Radial] Respiratory 18 81 H Rate Blood Pressure 102/59 110/62 141/68 O2 Sat by Pulse 100 98 Oximetry 03/01/19 09:43 Temperature 97.2 F L Pulse Rate 81 Pulse Rate [ Left Radial] Pulse Rate [ Right Radial] Respiratory 81 H Rate Blood Pressure 141/68 O2 Sat by Pulse 98 Oximetry General appearance: Present: no acute distress - EENT Eyes: PERRL, EOM intact ENT: hearing intact - Respiratory Respiratory effort: normal - Cardiovascular Rhythm: regular Heart Sounds: Present: S1 & S2 - Gastrointestinal General gastrointestinal: Present: soft, non-tender - Labs CBC & Chem 7: 03/01/19 07:21 03/01/19 07:21 Labs: Abnormal lab results 02/27/19 02/28/19 02/28/19 Range/Units 20:35 13:49 13:49 RBC (3.65-5.03) M/mm3 Hgb 7.1 L (10.1-14.3) gm/dl Hct 21.8 L (30.3-42.9) % RDW (13.2-15.2) % Lymph # (1.2-5.4) K/mm3 Seg Neutrophils % (40.0-70.0) % Creatinine (0.7-1.2) mg/dL Glucose (65-100) mg/dL Calcium (8.4-10.2) mg/dL Total Creatine Kinase 293 H (30-135) units/L CK-MB (CK-2) 44.2 H (0.0-4.0) ng/mL CK-MB (CK-2) Rel Index 15.0 H (0-4) Troponin T 0.193 H* (0.00-0.029) ng/mL Total Protein (6.3-8.2) g/dL Albumin (3.9-5) g/dL Crossmatch See Detail 02/28/19 02/28/19 03/01/19 Range/Units 17:45 23:20 07:21 RBC 2.65 L (3.65-5.03) M/mm3 Hgb 6.8 L 8.5 L 8.2 L (10.1-14.3) gm/dl Hct 20.3 L 25.4 L 23.9 L (30.3-42.9) % RDW 16.4 H (13.2-15.2) % Lymph # 1.1 L (1.2-5.4) K/mm3 Seg Neutrophils % 75.5 H (40.0-70.0) % Creatinine (0.7-1.2) mg/dL Glucose (65-100) mg/dL Calcium (8.4-10.2) mg/dL Total Creatine Kinase (30-135) units/L CK-MB (CK-2) (0.0-4.0) ng/mL CK-MB (CK-2) Rel Index (0-4) Troponin T (0.00-0.029) ng/mL Total Protein (6.3-8.2) g/dL Albumin (3.9-5) g/dL Crossmatch 03/01/19 Range/Units 07:21 RBC (3.65-5.03) M/mm3 Hgb (10.1-14.3) gm/dl Hct (30.3-42.9) % RDW (13.2-15.2) % Lymph # (1.2-5.4) K/mm3 Seg Neutrophils % (40.0-70.0) % Creatinine 0.6 L (0.7-1.2) mg/dL Glucose 106 H (65-100) mg/dL Calcium 7.6 L (8.4-10.2) mg/dL Total Creatine Kinase (30-135) units/L CK-MB (CK-2) (0.0-4.0) ng/mL CK-MB (CK-2) Rel Index (0-4) Troponin T (0.00-0.029) ng/mL Total Protein 5.7 L (6.3-8.2) g/dL Albumin 3.3 L (3.9-5) g/dL Crossmatch Medications & Allergies - Medications Allergies/Adverse Reactions: Allergies No Known Allergies Allergy (Unverified 08/27/18 09:22) Home Medications: Home Medications Medication Instructions Recorded Confirmed Last Taken Type Amiodarone HCl [Pacerone] 400 mg PO DAILY 08/27/18 02/27/19 09/28/18 History AtorvaSTATin [Lipitor] 80 mg PO DAILY 08/27/18 02/27/19 09/28/18 History Carvedilol [Coreg] 3.125 mg PO BID 08/27/18 02/27/19 09/28/18 History Docusate Sodium [Stool Softener] 100 mg PO BID 08/27/18 02/27/19 09/28/18 History Losartan Potassium 12.5 mg PO DAILY 08/27/18 02/27/19 09/28/18 History Magnesium Oxide 400 mg PO DAILY 08/27/18 02/27/19 09/28/18 History Pantoprazole Sodium 40 mg PO DAILY 08/27/18 02/27/19 09/28/18 History Spironolactone 25 mg PO DAILY 08/27/18 02/27/19 09/28/18 History hydrOXYzine HCl [Hydroxyzine HCl] 25 mg PO TID 08/27/18 02/27/19 09/28/18 History ALBUTEROL NEB's [Proventil 0.083% 2.5 mg IH Q4HRT PRN #30 nebu 12/07/18 04/30/19 Unknown Rx NEBS] Aspirin EC [Aspirin Enteric Coated 81 mg PO DAILY #30 tablet 10/06/18 02/27/19 Unknown Rx TAB] Bumetanide [Bumex 1 mg tab] 1 mg PO QDAY #30 tablet 10/06/18 02/27/19 Unknown Rx Clopidogrel [Plavix] 75 mg PO QDAY #30 tablet 10/06/18 02/27/19 Unknown Rx Gabapentin [Neurontin] 600 mg PO TID #90 tablet 10/06/18 02/27/19 Unknown Rx Insulin Glargine [Lantus VIAL] 30 units SUB-Q DAILY 30 Days units 10/06/18 02/27/19 Unknown Rx Levothyroxine [Synthroid] 25 mcg PO DAILY #30 tablet 10/06/18 02/27/19 Unknown Rx oxyCODONE /ACETAMINOPHEN [Percocet 1 tab PO Q8H PRN #6 tablet 10/06/18 02/27/19 Unknown Rx 5/325 mg] Calcium Acetate 667 mg PO TID 02/27/19 02/27/19 Unknown History Clopidogrel [Plavix] 75 mg PO DAILY 02/27/19 02/27/19 Unknown History Isosorbide Dinitrate [Isordil 10 mg PO TID 02/27/19 02/27/19 Unknown History Titradose] Losartan [Cozaar] 12.5 mg PO QDAY 02/27/19 02/27/19 Unknown History hydrALAZINE [Apresoline TAB] 10 mg PO Q8H 02/27/19 02/27/19 Unknown History Active Medications: Generic Name Dose Route Start Last Admin Trade Name Freq PRN Reason Stop Dose Admin Acetaminophen 650 mg 02/27/19 22:11 Tylenol NM Q4H PRN Fever >101 Albuterol 2.5 mg 02/28/19 22:38 Proventil IH Q4HRT PRN Shortness Of Breath Amiodarone HCl 400 mg 03/01/19 10:00 Cordarone PO DAILY [facility] Aspirin 81 mg 03/01/19 10:00 Halfprin Ec PO DAILY [facility] Atorvastatin Calcium 80 mg 03/01/19 10:00 Lipitor PO DAILY [facility] Bumetanide 1 mg 03/01/19 10:00 Bumex PO QDAY [facility] Calcium Acetate 667 mg 03/01/19 08:00 03/01/19 10:10 Phoslo PO Not Given TIDWM [facility] Carvedilol 3.125 mg 03/01/19 10:00 Coreg PO BID [facility] Clopidogrel Bisulfate 75 mg 03/01/19 10:00 Plavix PO DAILY [facility] Docusate Sodium 100 mg 03/01/19 10:00 Colace PO BID [facility] Gabapentin 600 mg 02/28/19 23:00 03/01/19 10:10 Neurontin PO Not Given TID [facility] Hydralazine HCl 10 mg 02/28/19 23:00 03/01/19 05:55 Apresoline PO 10 mg Q8HR [facility] Administration Hydroxyzine HCl 25 mg 03/01/19 08:00 03/01/19 10:09 Atarax PO Not Given TID [facility] Pantoprazole Sodium 80 mg/ 100 mls @ 10 mls/hr 02/27/19 21:00 02/28/19 05:49 Sodium Chloride IV 8 mg/hr DIRECT [facility] 10 mls/hr Administration 8 MG/HR Sodium Chloride 1,000 mls @ 50 mls/hr 02/28/19 13:00 03/01/19 09:45 Nacl 0.9% 1000 Ml IV 50 mls/hr DIRECT [facility] Administration Milrinone Lactate/Dextrose 20 mg in 100 mls @ 4.763 mls/hr 02/28/19 12:00 03/01/19 01:24 Milrinone-D5w 20 Mg/100 Ml IV 0.25 mcg/kg/min TITR [facility] 4.763 mls/hr Administration 0.25 MCG/KG/MIN Insulin Glargine 30 units 03/01/19 10:00 Lantus SUB-Q DAILY [facility] Isosorbide Dinitrate 10 mg 03/01/19 08:00 03/01/19 10:09 Isordil Titradose PO Not Given TID [facility] Levothyroxine Sodium 25 mcg 03/01/19 06:00 03/01/19 06:55 Synthroid PO 25 mcg DAILY@0600 [facility] Administration Lorazepam 1 mg 02/27/19 22:10 Ativan IV Q4H PRN Anxiety Losartan Potassium 12.5 mg 03/01/19 10:00 Cozaar PO QDAY [facility] Magnesium Oxide 400 mg 03/01/19 10:00 Mag-Ox PO DAILY [facility] Nitroglycerin 0.4 mg 02/28/19 05:12 Nitrostat SL .Q5MIN PRN Chest Pain Ondansetron HCl 4 mg 02/27/19 22:11 Zofran IV Q8H PRN Nausea And Vomiting Oxycodone/Acetaminophen 1 tab 02/28/19 22:38 02/28/19 23:44 Percocet 5/325 PO 1 tab Q8H PRN Administration Pain, Moderate (4-6)
[2019-03-01] MEDS: COZAAR PO SCH (12:07)
[2019-03-01] MEDS: BUMEX PO SCH (12:07)
[2019-03-01] MEDS: LANTUS SUB-Q SCH (12:07)
[2019-03-01] MEDS: COREG PO SCH ×2 (12:08→22:15)
[2019-03-01] MEDS: CORDARONE PO SCH (12:08)
[2019-03-01] MEDS: HALFPRIN EC PO SCH (12:08)
[2019-03-01] MEDS: COLACE PO SCH ×2 (12:08→22:30)
[2019-03-01] MEDS ORDERED: NACL 0.9% 500 ML 500 ML IV ONE ×3 (12:08→12:47)
[2019-03-01] MEDS: PLAVIX PO SCH (12:10)
[2019-03-01] MEDS: MAG-OX PO SCH (12:10)
--- NOTE | 2019-03-01 12:28 | Progress Note ---
Assessment and Plan - Patient Problems (1) Back pain Current Visit: Yes Status: Acute Qualifiers: Back pain location: low back pain Chronicity: chronic Back pain laterality: bilateral Plan to address problem: Low back yamilet chronic in Nature The cause is DJD Lumbar Sacral Treated with chronic pain meds for a long time Resume pain control (2) GI bleed Current Visit: Yes Status: Acute Plan to address problem: Acute GI blood loss anemia. Patient is stable status post transfusion. Scheduled for EGD today however could not proceed secondary to suboptimal hemoglobin and hematocrit. We'll optimize to prepare her for EGD in a.m. To up to midnight. (3) NSTEMI (non-ST elevated myocardial infarction) Current Visit: Yes Status: Acute Plan to address problem: at present remains chest pain-free. (4) CAD S/P percutaneous coronary angioplasty Current Visit: Yes Status: Chronic (5) HFrEF (heart failure with reduced ejection fraction) Current Visit: Yes Status: Chronic Qualifiers: Heart failure chronicity: acute on chronic Qualified Code(s): I50.23 - Acute on chronic systolic (congestive) heart failure Plan to address problem: Patient with history of congestive heart failure ejection fraction of 15-20%. We'll transfuse slowly. Follow-up with chest x-ray after transfusion. to history of patient is not volume overloaded. Patient continue on milrinone. (6) HTN (hypertension) Current Visit: No Status: Chronic Plan to address problem: At present patient has optimal control on current medications. Blood pressure 110/62. Will not advance any meds at this time. Coreg lisinopril afterload reducers. (7) Hemiparesis due to old cerebrovascular accident Current Visit: No Status: Chronic Plan to address problem: Agent currently on aspirin and statin. No further episodes of bleeding. History Interval history: Patient today at bedside without any new concerns. No further bleeding. Hospital course was complicated by anemia. It was recommended the patient not get the EGD because H&H was not optimal. Therefore will require transfusion today. Patient also complained of back pain which is chronic. Patient states she's been treated for chronic back pain for years in [place] with Percocet. States her primary care physician and pain management had been change in medications for chronic back pain secondary to degenerative joint disease of the back. Lastly she complains of constipation however she tells me she had a bowel movement the day she came to the hospital. Patient also states that she is not really eating a full meal and states that she eats she feels she can go to the restroom naturally. Hospitalist Physical - Constitutional Vitals: Temp Pulse Resp BP Pulse Ox 97.2 F L 81 81 H 141/68 98 03/01/19 09:43 03/01/19 09:43 03/01/19 09:43 03/01/19 09:43 03/01/19 09:43 General appearance: Present: no acute distress - EENT Eyes: Present: PERRL, EOM intact ENT: hearing intact, clear oral mucosa, dentition normal, no oropharyngeal erythema, no thrush - Neck Neck: Present: supple, normal ROM. Absent: enlarged thyroid, masses or JVD, cervical LAD - Respiratory Respiratory: bilateral: CTA - Cardiovascular Rhythm: regular Heart Sounds: Present: systolic murmur - Extremities Extremities: no ischemia, pulses intact, pulses symmetrical, No edema, normal temperature, normal color, Full ROM Peripheral Pulses: within normal limits - Abdominal General gastrointestinal: soft, non-tender, non-distended, normal bowel sounds - Integumentary Integumentary: Present: clear, warm, dry - Psychiatric Psychiatric: appropriate mood/affect, intact judgment & insight, memory intact - Neurologic Neurologic: CNII-XII intact, focal deficits, moves all extremities Results - Labs CBC & Chem 7: 03/01/19 07:21 03/01/19 07:21 Labs: Laboratory Last Values WBC 6.9 K/mm3 (4.5-11.0) 03/01/19 07:21 RBC 2.65 M/mm3 (3.65-5.03) L 03/01/19 07:21 Hgb 8.2 gm/dl (10.1-14.3) L 03/01/19 07:21 Hct 23.9 % (30.3-42.9) L 03/01/19 07:21 MCV 90 fl (79-97) 03/01/19 07:21 MCH 31 pg (28-32) 03/01/19 07:21 MCHC 34 % (30-34) 03/01/19 07:21 RDW 16.4 % (13.2-15.2) H 03/01/19 07:21 Plt Count 184 K/mm3 (140-440) 03/01/19 07:21 Lymph % (Auto) 16.4 % (13.4-35.0) 03/01/19 07:21 [place] % (Auto) 5.3 % (0.0-7.3) 03/01/19 07:21 Eos % (Auto) 2.4 % (0.0-4.3) 03/01/19 07:21 Baso % (Auto) 0.4 % (0.0-1.8) 03/01/19 07:21 Lymph # 1.1 K/mm3 (1.2-5.4) L 03/01/19 07:21 [place] # 0.4 K/mm3 (0.0-0.8) 03/01/19 07:21 Eos # 0.2 K/mm3 (0.0-0.4) 03/01/19 07:21 Baso # 0.0 K/mm3 (0.0-0.1) 03/01/19 07:21 Seg Neutrophils % 75.5 % (40.0-70.0) H 03/01/19 07:21 Seg Neutrophils # 5.2 K/mm3 (1.8-7.7) 03/01/19 07:21 PT 15.2 Sec. (12.2-14.9) H 02/27/19 19:30 INR 1.13 (0.87-1.13) 02/27/19 19:30 APTT 23.6 Sec. (24.2-36.6) L 02/27/19 19:30 Sodium 139 mmol/L (137-145) 03/01/19 07:21 Potassium 4.3 mmol/L (3.6-5.0) 03/01/19 07:21 Chloride 106.4 mmol/L (98-107) 03/01/19 07:21 Carbon Dioxide 23 mmol/L (22-30) 03/01/19 07:21 Anion Gap 14 mmol/L 03/01/19 07:21 BUN 12 mg/dL (7-17) 03/01/19 07:21 Creatinine 0.6 mg/dL (0.7-1.2) L 03/01/19 07:21 Estimated GFR > 60 ml/min 03/01/19 07:21 BUN/Creatinine Ratio 20 % 03/01/19 07:21 Glucose 106 mg/dL (65-100) H 03/01/19 07:21 Calcium 7.6 mg/dL (8.4-10.2) L 03/01/19 07:21 Total Bilirubin 0.50 mg/dL (0.1-1.2) 03/01/19 07:21 AST 35 units/L (5-40) 03/01/19 07:21 ALT 17 units/L (7-56) 03/01/19 07:21 Alkaline Phosphatase 58 units/L (35-129) 03/01/19 07:21 Total Creatine Kinase 293 units/L (30-135) H 02/28/19 13:49 CK-MB (CK-2) 44.2 ng/mL (0.0-4.0) H 02/28/19 13:49 CK-MB (CK-2) Rel Index 15.0 (0-4) H 02/28/19 13:49 Troponin T 0.193 ng/mL (0.00-0.029) H* 02/28/19 13:49 NT-Pro-B Natriuret Pep 1649 pg/mL (0-900) H 02/27/19 19:30 Total Protein 5.7 g/dL (6.3-8.2) L 03/01/19 07:21 Albumin 3.3 g/dL (3.9-5) L 03/01/19 07:21 Albumin/Globulin Ratio 1.4 % 03/01/19 07:21 Triglycerides 91 mg/dL (2-149) 02/28/19 05:59 Cholesterol 112 mg/dL (50-199) 02/28/19 05:59 LDL Cholesterol Direct 64 mg/dL (50-130) 02/28/19 05:59 HDL Cholesterol 36 mg/dL (40-59) L 02/28/19 05:59 Cholesterol/HDL Ratio 3.11 % 02/28/19 05:59 Blood Type O POSITIVE 02/27/19 20:35 Antibody Screen Negative 02/27/19 20:35 Crossmatch See Detail 02/27/19 20:35 Active Medications - Current Medications Current Medications: Generic Name Dose Route Start Last Admin Trade Name Freq PRN Reason Stop Dose Admin Acetaminophen 650 mg 02/27/19 22:11 Tylenol IA Q4H PRN Fever >101 Albuterol 2.5 mg 02/28/19 22:38 Proventil IH Q4HRT PRN Shortness Of Breath Amiodarone HCl 400 mg 03/01/19 10:00 03/01/19 12:08 Cordarone PO Not Given DAILY [facility] Aspirin 81 mg 03/01/19 10:00 03/01/19 12:08 Halfprin Ec PO Not Given DAILY [facility] Atorvastatin Calcium 80 mg 03/01/19 10:00 03/01/19 12:10 Lipitor PO Not Given DAILY [facility] Bumetanide 1 mg 03/01/19 10:00 03/01/19 12:07 Bumex PO Not Given QDAY [facility] Calcium Acetate 667 mg 03/01/19 08:00 03/01/19 10:10 Phoslo PO Not Given TIDWM [facility] Carvedilol 3.125 mg 03/01/19 10:00 03/01/19 12:08 Coreg PO Not Given BID [facility] Clopidogrel Bisulfate 75 mg 03/01/19 10:00 03/01/19 12:10 Plavix PO Not Given DAILY [facility] Docusate Sodium 100 mg 03/01/19 10:00 03/01/19 12:08 Colace PO Not Given BID [facility] Gabapentin 600 mg 02/28/19 23:00 03/01/19 10:10 Neurontin PO Not Given TID [facility] Hydralazine HCl 10 mg 02/28/19 23:00 03/01/19 05:55 Apresoline PO 10 mg Q8HR [facility] Administration Hydroxyzine HCl 25 mg 03/01/19 08:00 03/01/19 10:09 Atarax PO Not Given TID [facility] Pantoprazole Sodium 80 mg/ 100 mls @ 10 mls/hr 02/27/19 21:00 02/28/19 05:49 Sodium Chloride IV 8 mg/hr DIRECT [facility] 10 mls/hr Administration 8 MG/HR Sodium Chloride 1,000 mls @ 50 mls/hr 02/28/19 13:00 03/01/19 09:45 Nacl 0.9% 1000 Ml IV 50 mls/hr DIRECT [facility] Administration Milrinone Lactate/Dextrose 20 mg in 100 mls @ 4.763 mls/hr 02/28/19 12:00 03/01/19 01:24 Milrinone-D5w 20 Mg/100 Ml IV 0.25 mcg/kg/min TITR [facility] 4.763 mls/hr Administration 0.25 MCG/KG/MIN Insulin Glargine 30 units 03/01/19 10:00 03/01/19 12:07 Lantus SUB-Q 30 units DAILY [facility] Administration Isosorbide Dinitrate 10 mg 03/01/19 08:00 03/01/19 10:09 Isordil Titradose PO Not Given TID [facility] Levothyroxine Sodium 25 mcg 03/01/19 06:00 03/01/19 06:55 Synthroid PO 25 mcg DAILY@0600 [facility] Administration Lorazepam 1 mg 02/27/19 22:10 Ativan IV Q4H PRN Anxiety Losartan Potassium 12.5 mg 03/01/19 10:00 03/01/19 12:07 Cozaar PO Not Given QDAY [facility] Magnesium Oxide 400 mg 03/01/19 10:00 03/01/19 12:10 Mag-Ox PO Not Given DAILY [facility] Nitroglycerin 0.4 mg 02/28/19 05:12 Nitrostat SL .Q5MIN PRN Chest Pain Ondansetron HCl 4 mg 02/27/19 22:11 Zofran IV Q8H PRN Nausea And Vomiting Oxycodone/Acetaminophen 1 tab 02/28/19 22:38 02/28/19 23:44 Percocet 5/325 PO 1 tab Q8H PRN Administration Pain, Moderate (4-6)
[2019-03-01] MEDS: PERCOCET 5/325 PO PRN ×2 (12:30→20:53)
[2019-03-01] MEDS ORDERED: PERCOCET 5/325 PO PRN (12:34)
--- NOTE | 2019-03-01 12:34 | Progress Note ---
Assessment and Plan Endoscopy post-poned as Hgb 8.2 today and pt with no evidence of ongoing bleed x 48 hrs per GI team. Would prefer Hgb ~10 in setting of ACS in pt with known CAD s/p PCI and ICMP. Will give additional PRBC tx today and f/u H&H in AM. Cont present cardiac management, including milrinone gtt - pt on home milrinone therapy. Pt is at high cardiovascular risk for endoscopy. Pending Hgb improved to ~9.5 - 10, may proceed with endoscopy from cardiac standpoint. The patient has been seen in conjunction with Dr. Johnson who agrees with assess ment and plan of care. - Patient Problems (1) Symptomatic anemia Current Visit: Yes Status: Acute (2) GI bleed Current Visit: Yes Status: Acute (3) NSTEMI (non-ST elevated myocardial infarction) Current Visit: Yes Status: Acute (4) Chest pain Current Visit: Yes Status: Acute Qualifiers: (5) CAD S/P percutaneous coronary angioplasty Current Visit: Yes Status: Chronic (6) Automatic implantable cardioverter-defibrillator in situ Current Visit: No Status: Chronic (7) HTN (hypertension) Current Visit: No Status: Chronic (8) Ischemic cardiomyopathy Current Visit: No Status: Chronic (9) Acute on chronic HFrEF (heart failure with reduced ejection fraction) Current Visit: Yes Status: Chronic Qualifiers: Heart failure chronicity: acute on chronic Qualified Code(s): I50.23 - Acute on chronic systolic (congestive) heart failure (10) Hemiparesis due to old cerebrovascular accident Current Visit: No Status: Chronic (11) Hyperlipidemia Current Visit: No Status: Chronic Subjective Date of service: 03/01/19 Principal diagnosis: GI bleed; HF; NSTEMI Interval history: pt resting in bed, no current cardiac complaints, c/o lower back pain which is chronic. Objective Last Vital Signs Temp 97.2 F L 03/01/19 09:43 Pulse 81 03/01/19 09:43 Resp 81 H 03/01/19 09:43 BP 141/68 03/01/19 09:43 Pulse Ox 98 03/01/19 09:43 - Physical Examination General: No Apparent Distress HEENT: Positive: PERRL, Normocephaly, Mucus Membranes Moist Neck: Positive: neck supple, trachea midline Cardiac: Positive: Reg Rate and Rhythm, S1/S2 Lungs: Positive: Decreased Breath Sounds Neuro: Positive: Grossly Intact Abdomen: Negative: Tender Skin: Negative: Rash, Wound Musculoskeletal: No Pain Extremities: Present: +2 Edema - Labs and Meds Cardiac Enzymes 02/28/19 03/01/19 Range/Units 13:49 07:21 AST 35 (5-40) units/L CK-MB (CK-2) 44.2 H (0.0-4.0) ng/mL CBC 02/28/19 02/28/19 02/28/19 Range/Units 13:49 17:45 23:20 WBC (4.5-11.0) K/mm3 RBC (3.65-5.03) M/mm3 Hgb 7.1 L 6.8 L 8.5 L (10.1-14.3) gm/dl Hct 21.8 L 20.3 L 25.4 L (30.3-42.9) % Plt Count (140-440) K/mm3 Lymph # (1.2-5.4) K/mm3 [place] # (0.0-0.8) K/mm3 Eos # (0.0-0.4) K/mm3 Baso # (0.0-0.1) K/mm3 03/01/19 Range/Units 07:21 WBC 6.9 (4.5-11.0) K/mm3 RBC 2.65 L (3.65-5.03) M/mm3 Hgb 8.2 L (10.1-14.3) gm/dl Hct 23.9 L (30.3-42.9) % Plt Count 184 (140-440) K/mm3 Lymph # 1.1 L (1.2-5.4) K/mm3 [place] # 0.4 (0.0-0.8) K/mm3 Eos # 0.2 (0.0-0.4) K/mm3 Baso # 0.0 (0.0-0.1) K/mm3 Comprehensive Metabolic Panel 03/01/19 Range/Units 07:21 Sodium 139 (137-145) mmol/L Potassium 4.3 (3.6-5.0) mmol/L Chloride 106.4 (98-107) mmol/L Carbon Dioxide 23 (22-30) mmol/L BUN 12 (7-17) mg/dL Creatinine 0.6 L (0.7-1.2) mg/dL Glucose 106 H (65-100) mg/dL Calcium 7.6 L (8.4-10.2) mg/dL AST 35 (5-40) units/L ALT 17 (7-56) units/L Alkaline Phosphatase 58 (35-129) units/L Total Protein 5.7 L (6.3-8.2) g/dL Albumin 3.3 L (3.9-5) g/dL - Imaging and Cardiology EKG: report reviewed - Telemetry EKG Rhythm: Sinus Rhythm AV and intraventricular conduction: intraventricular conducti
[2019-03-01 21:20] LABS: Hemoglobin 9.7 gm/dl (10.1-14.3); Mean Corpuscular HGB Conc 34 % (30-34); Mean Corpuscular Volume 93 fl (79-97); Platelet Count 199 K/mm3 (140-440); Red Blood Count 3.13 M/mm3 (3.65-5.03); Red Cell Distribution Width 15.9 % (13.2-15.2)
[2019-03-02] MEDS: PROTONIX 80 MG in NACL 0.9% 100 ML IV SCH (03:00)
[2019-03-02] MEDS: SYNTHROID PO SCH (05:44)
[2019-03-02] MEDS: APRESOLINE PO SCH (05:44)
[2019-03-02] MEDS: NACL 0.9% 1000 ML 1,000 ML IV SCH ×3 (05:45→23:27)
[2019-03-02 05:52] LABS: Hematocrit 26.8 % (30.3-42.9); Hemoglobin 9.2 gm/dl (10.1-14.3); Mean Corpuscular HGB Conc 34 % (30-34); Mean Corpuscular Volume 92 fl (79-97); Platelet Count 187 K/mm3 (140-440); Red Blood Count 2.92 M/mm3 (3.65-5.03); Red Cell Distribution Width 15.8 % (13.2-15.2)
[2019-03-02] MEDS: PERCOCET 5/325 PO PRN (06:12)
[2019-03-02] MEDS ORDERED: NACL 0.9% 500 ML 500 ML IV NR (08:00)
[2019-03-02] MEDS: ISORDIL TITRADOSE PO SCH (09:17)
[2019-03-02] MEDS: NEURONTIN PO SCH ×3 (09:17→20:22)
[2019-03-02] MEDS: PHOSLO PO SCH ×3 (09:17→16:57)
[2019-03-02] MEDS: ATARAX PO SCH ×3 (09:17→20:22)
--- NOTE | 2019-03-02 10:04 | Progress Note ---
Assessment and Plan Hgb 9.2 today. Pt denies any present cardiac complaints. Cont present cardiac management, including milrinone gtt - pt on home milrinone therapy. Pt is at high cardiovascular risk for endoscopy. There are no immediate cardiac contraindications to proceeding with endoscopy at this time. She may proceed with endoscopy today from cardiac standpoint. The patient has been seen in conjunction with Dr. Johnson who agrees with assessment and plan of care. - Patient Problems (1) Symptomatic anemia Current Visit: Yes Status: Acute (2) GI bleed Current Visit: Yes Status: Acute (3) NSTEMI (non-ST elevated myocardial infarction) Current Visit: Yes Status: Acute (4) Chest pain Current Visit: Yes Status: Acute Qualifiers: (5) CAD S/P percutaneous coronary angioplasty Current Visit: Yes Status: Chronic (6) Automatic implantable cardioverter-defibrillator in situ Current Visit: No Status: Chronic (7) HTN (hypertension) Current Visit: No Status: Chronic (8) Ischemic cardiomyopathy Current Visit: No Status: Chronic (9) Acute on chronic HFrEF (heart failure with reduced ejection fraction) Current Visit: Yes Status: Chronic Qualifiers: Heart failure chronicity: acute on chronic Qualified Code(s): I50.23 - Acute on chronic systolic (congestive) heart failure (10) Hemiparesis due to old cerebrovascular accident Current Visit: No Status: Chronic (11) Hyperlipidemia Current Visit: No Status: Chronic Subjective Date of service: 03/02/19 Principal diagnosis: GI bleed; HF; NSTEMI Interval history: pt resting in bed, no current cardiac complaints. Objective Last Vital Signs Temp 97.6 F 03/02/19 08:56 Pulse 76 03/02/19 09:17 Resp 18 03/02/19 08:56 BP 91/48 03/02/19 09:17 Pulse Ox 100 03/02/19 08:56 - Physical Examination General: No Apparent Distress HEENT: Positive: PERRL, Normocephaly, Mucus Membranes Moist Neck: Positive: neck supple, trachea midline Cardiac: Positive: Reg Rate and Rhythm, S1/S2 Lungs: Positive: Decreased Breath Sounds Neuro: Positive: Grossly Intact Abdomen: Negative: Tender Skin: Negative: Rash, Wound Musculoskeletal: No Pain Extremities: Present: +2 Edema - Labs and Meds CBC 03/01/19 03/02/19 Range/Units 19:52 05:22 WBC 7.4 6.4 (4.5-11.0) K/mm3 RBC 3.13 L 2.92 L (3.65-5.03) M/mm3 Hgb 9.7 L 9.2 L (10.1-14.3) gm/dl Hct 29.0 L 26.8 L (30.3-42.9) % Plt Count 199 187 (140-440) K/mm3 - Imaging and Cardiology EKG: report reviewed AV and intraventricular conduction: intraventricular conducti
[2019-03-02] MEDS ORDERED: NACL 0.9% 1000 ML 1,000 ML ONE (11:12)
[2019-03-02] MEDS: COZAAR PO SCH (11:14)
[2019-03-02] MEDS: COREG PO SCH ×2 (11:14→22:26)
[2019-03-02] MEDS: BUMEX PO SCH (11:14)
[2019-03-02] MEDS: LANTUS SUB-Q SCH (11:15)
[2019-03-02] MEDS: MILRINONE-D5W 20 MG/100 ML 20 MG/100 ML BAG IV SCH (11:43)
--- NOTE | 2019-03-02 11:46 | Progress Note ---
Assessment and Plan - Patient Problems (1) Back pain Current Visit: Yes Status: Acute Qualifiers: Back pain location: low back pain Chronicity: chronic Back pain laterality: bilateral Plan to address problem: Low back yamilet chronic in Nature The cause is DJD Lumbar Sacral Treated with chronic pain meds for a long time Resume pain control better with Percocet. (2) GI bleed Current Visit: Yes Status: Acute Plan to address problem: Spoke with cardiology after transfusion H&H 9.2. Stable to proceed with EGD (3) NSTEMI (non-ST elevated myocardial infarction) Current Visit: Yes Status: Acute Plan to address problem: at present remains chest pain-free. (4) CAD S/P percutaneous coronary angioplasty Current Visit: Yes Status: Chronic (5) HFrEF (heart failure with reduced ejection fraction) Current Visit: Yes Status: Chronic Qualifiers: Heart failure chronicity: acute on chronic Qualified Code(s): I50.23 - Acute on chronic systolic (congestive) heart failure Plan to address problem: Patient with history of congestive heart failure ejection fraction of 15-20%. We'll transfuse slowly. Follow-up with chest x-ray after transfusion. to histo ry of patient is not volume overloaded. Patient continue on milrinone. (6) HTN (hypertension) Current Visit: No Status: Chronic Plan to address problem: At present patient has optimal control on current medications. Blood pressure 110/62. Will not advance any meds at this time. Pressure appears to be on the low side. We'll hold antihypertensives today. (7) Hemiparesis due to old cerebrovascular accident Current Visit: No Status: Chronic Plan to address problem: Agent currently on aspirin and statin. No further episodes of bleeding. History Interval history: She is resting comfortably. Tolerated blood transfusion well over the p.m. No new concerns at this particular time. Cardiology patient cleared to have procedure today. Hospitalist Physical - Constitutional Vitals: Temp Pulse Resp BP Pulse Ox 97.6 F 76 18 91/48 100 03/02/19 08:56 03/02/19 11:14 03/02/19 08:56 03/02/19 11:14 03/02/19 08:56 General appearance: Present: no acute distress - EENT Eyes: Present: PERRL, EOM intact ENT: hearing intact, clear oral mucosa, dentition normal, oropharyngeal erythema, poor dentition, thrush, ulcerations - Neck Neck: Present: supple, normal ROM, rigidity. Absent: enlarged thyroid, masses or JVD, cervical LAD, carotid bruits - Respiratory Respiratory effort: normal Respiratory: bilateral: CTA, rhonchi (the same as yesterday a few rhonchi noted which is changed.) - Cardiovascular Rhythm: regular Heart Sounds: Present: systolic murmur - Extremities Extremities: no ischemia, pulses intact, pulses symmetrical, normal temperature, normal color, Full ROM Extremity abnormal: edema - Abdominal General gastrointestinal: soft, non-tender, non-distended, normal bowel sounds, no hepatomegaly, no splenomegaly, no mass - Integumentary Integumentary: Present: clear, warm, dry. Absent: jaundice, rash, clammy - Psychiatric Psychiatric: appropriate mood/affect, intact judgment & insight, memory intact - Neurologic Neurologic: CNII-XII intact, moves all extremities Results - Labs CBC & Chem 7: 03/02/19 05:22 03/01/19 07:21 Labs: Laboratory Last Values WBC 6.4 K/mm3 (4.5-11.0) 03/02/19 05:22 RBC 2.92 M/mm3 (3.65-5.03) L 03/02/19 05:22 Hgb 9.2 gm/dl (10.1-14.3) L 03/02/19 05:22 Hct 26.8 % (30.3-42.9) L 03/02/19 05:22 MCV 92 fl (79-97) 03/02/19 05:22 MCH 32 pg (28-32) 03/02/19 05:22 MCHC 34 % (30-34) 03/02/19 05:22 RDW 15.8 % (13.2-15.2) H 03/02/19 05:22 Plt Count 187 K/mm3 (140-440) 03/02/19 05:22 Lymph % (Auto) 16.4 % (13.4-35.0) 03/01/19 07:21 [place] % (Auto) 5.3 % (0.0-7.3) 03/01/19 07:21 Eos % (Auto) 2.4 % (0.0-4.3) 03/01/19 07:21 Baso % (Auto) 0.4 % (0.0-1.8) 03/01/19 07:21 Lymph # 1.1 K/mm3 (1.2-5.4) L 03/01/19 07:21 [facility] [place] # 0.4 K/mm3 (0.0-0.8) 03/01/19 07:21 Eos # 0.2 K/mm3 (0.0-0.4) 03/01/19 07:21 Baso # 0.0 K/mm3 (0.0-0.1) 03/01/19 07:21 Seg Neutrophils % 75.5 % (40.0-70.0) H 03/01/19 07:21 Seg Neutrophils # 5.2 K/mm3 (1.8-7.7) 03/01/19 07:21 PT 15.2 Sec. (12.2-14.9) H 02/27/19 19:30 INR 1.13 (0.87-1.13) 02/27/19 19:30 APTT 23.6 Sec. (24.2-36.6) L 02/27/19 19:30 Sodium 139 mmol/L (137-145) 03/01/19 07:21 Potassium 4.3 mmol/L (3.6-5.0) 03/01/19 07:21 Chloride 106.4 mmol/L (98-107) 03/01/19 07:21 Carbon Dioxide 23 mmol/L (22-30) 03/01/19 07:21 Anion Gap 14 mmol/L 03/01/19 07:21 BUN 12 mg/dL (7-17) 03/01/19 07:21 Creatinine 0.6 mg/dL (0.7-1.2) L 03/01/19 07:21 Estimated GFR > 60 ml/min 03/01/19 07:21 BUN/Creatinine Ratio 20 % 03/01/19 07:21 Glucose 106 mg/dL (65-100) H 03/01/19 07:21 POC Glucose 83 (70-105) 03/02/19 11:28 Calcium 7.6 mg/dL (8.4-10.2) L 03/01/19 07:21 Total Bilirubin 0.50 mg/dL (0.1-1.2) 03/01/19 07:21 AST 35 units/L (5-40) 03/01/19 07:21 ALT 17 units/L (7-56) 03/01/19 07:21 Alkaline Phosphatase 58 units/L (35-129) 03/01/19 07:21 Total Creatine Kinase 293 units/L (30-135) H 02/28/19 13:49 CK-MB (CK-2) 44.2 ng/mL (0.0-4.0) H 02/28/19 13:49 CK-MB (CK-2) Rel Index 15.0 (0-4) H 02/28/19 13:49 Troponin T 0.296 ng/mL (0.00-0.029) H* D 03/02/19 05:22 NT-Pro-B Natriuret Pep 1649 pg/mL (0-900) H 02/27/19 19:30 Total Protein 5.7 g/dL (6.3-8.2) L 03/01/19 07:21 Albumin 3.3 g/dL (3.9-5) L 03/01/19 07:21 Albumin/Globulin Ratio 1.4 % 03/01/19 07:21 Triglycerides 91 mg/dL (2-149) 02/28/19 05:59 Cholesterol 112 mg/dL (50-199) 02/28/19 05:59 LDL Cholesterol Direct 64 mg/dL (50-130) 02/28/19 05:59 HDL Cholesterol 36 mg/dL (40-59) L 02/28/19 05:59 Cholesterol/HDL Ratio 3.11 % 02/28/19 05:59 Blood Type O POSITIVE 02/27/19 20:35 Antibody Screen Negative 02/27/19 20:35 Crossmatch See Detail 02/27/19 20:35 Active Medications - Current Medications Current Medications: Generic Name Dose Route Start Last Admin Trade Name Freq PRN Reason Stop Dose Admin Acetaminophen 650 mg 02/27/19 22:11 Tylenol [place] Q4H PRN Fever >101 Albuterol 2.5 mg 02/28/19 22:38 Proventil IH Q4HRT PRN Shortness Of Breath Amiodarone HCl 400 mg 03/01/19 10:00 03/01/19 12:08 Cordarone PO Not Given DAILY [facility] Aspirin 81 mg 03/01/19 10:00 03/01/19 12:08 Halfprin Ec PO Not Given DAILY [facility] Atorvastatin Calcium 80 mg 03/01/19 10:00 03/01/19 12:10 Lipitor PO Not Given DAILY [facility] Bumetanide 1 mg 03/01/19 10:00 03/02/19 11:14 Bumex PO Not Given QDAY [facility] Calcium Acetate 667 mg 03/01/19 08:00 03/02/19 09:17 Phoslo PO Not Given TIDWM [facility] Carvedilol 3.125 mg 03/01/19 10:00 03/02/19 11:14 Coreg PO Not Given BID [facility] Clopidogrel Bisulfate 75 mg 03/01/19 10:00 03/01/19 12:10 Plavix PO Not Given DAILY [facility] Docusate Sodium 100 mg 03/01/19 10:00 03/01/19 22:30 Colace PO 100 mg BID [facility] Administration Gabapentin 600 mg 02/28/19 23:00 03/02/19 09:17 Neurontin PO Not Given TID [facility] Hydroxyzine HCl 25 mg 03/01/19 08:00 03/02/19 09:17 Atarax PO Not Given TID [facility] Pantoprazole Sodium 80 mg/ 100 mls @ 10 mls/hr 02/27/19 21:00 03/02/19 03:00 Sodium Chloride IV 8 mg/hr DIRECT [facility] 10 mls/hr Administration 8 MG/HR Sodium Chloride 1,000 mls @ 50 mls/hr 02/28/19 13:00 03/02/19 05:45 Nacl 0.9% 1000 Ml IV 50 mls/hr DIRECT [facility] Administration Milrinone Lactate/Dextrose 20 mg in 100 mls @ 4.763 mls/hr 02/28/19 12:00 03/01/19 18:39 Milrinone-D5w 20 Mg/100 Ml IV 0.25 mcg/kg/min TITR [facility] 4.763 mls/hr Administration 0.25 MCG/KG/MIN Sodium Chloride 500 mls @ 0 mls/hr 03/02/19 08:00 Nacl 0.9% 500 Ml IV 03/02/19 16:00 ONCE NR As Directed Insulin Glargine 30 units 03/01/19 10:00 03/02/19 11:15 Lantus SUB-Q Not Given DAILY [facility] Levothyroxine Sodium 25 mcg 03/01/19 06:00 03/02/19 05:44 Synthroid PO 25 mcg DAILY@0600 [facility] Administration Lorazepam 1 mg 02/27/19 22:10 Ativan IV Q4H PRN Anxiety Losartan Potassium 12.5 mg 03/01/19 10:00 03/02/19 11:14 Cozaar PO Not Given QDAY [facility] Magnesium Oxide 400 mg 03/01/19 10:00 03/01/19 12:10 Mag-Ox PO Not Given DAILY [facility] Nitroglycerin 0.4 mg 02/28/19 05:12 Nitrostat SL .Q5MIN PRN Chest Pain Ondansetron HCl 4 mg 02/27/19 22:11 Zofran IV Q8H PRN Nausea And Vomiting Oxycodone/Acetaminophen 1 tab 02/28/19 22:38 03/02/19 06:12 Percocet 5/325 PO 1 tab Q8H PRN Administration Pain, Moderate (4-6) Oxycodone/Acetaminophen 1 tab 03/01/19 12:34 Percocet 5/325 PO Q6H PRN Pain, Moderate (4-6)
[2019-03-02] MEDS ORDERED: DIPRIVAN 10 MG/ML IV ONE (13:53)
--- NOTE | 2019-03-02 14:09 | Post Operative Note ---
Pre-op diagnosis: Melena, anemia Post-op diagnosis: other (Healing gastric ulcer) Findings: 1. 2 cm area of erythema with what appears to be healing shallow small ulcer, biopsied. 2. Otherwise, patchy erythema in antrum. 3. Otherwise normal EGD with no stigmata of bleeding. Procedure: EGD with biopsy Anesthesia: MAC Surgeon: ANNABEL CONROY Estimated blood loss: minimal Pathology: list (1. Gastric ulcer) Specimen disposition: to lab Condition: stable Disposition: floor (Monitor H/H. Chronic PPI. If evidence of further bleed, colonoscopy.)
--- NOTE | 2019-03-02 14:42 | Operative Report ---
PROCEDURE: Upper endoscopy. PREOPERATIVE DIAGNOSES: Melena and anemia. POSTOPERATIVE DIAGNOSIS: Healing gastric ulcer. SEDATION: MAC by Anesthesia. HISTORY: The patient is a 63-year-old woman with history of coronary artery disease, who presents with acute coronary syndrome and hemoglobin of 5.9 with a 1-day history of melena on 02/26/2019. She came in with a BUN of 44 and a creatinine of 0.8 on admission. She was transfused and upper endoscopy is being performed for evaluation. DESCRIPTION OF PROCEDURE: Procedure indication, risks, and benefits were explained and consent was obtained. The patient was placed in left lateral decubitus position and sedated. LinguaNext video upper scope was passed through the mouth and oropharynx into the descending duodenum. Scope was then gradually withdrawn with close inspection of mucosa. FINDINGS: 1. Normal appearing esophagus with sharp Z-line located 40 cm from the incisors. 2. In the proximal gastric body along the lesser curvature, there was a 2 cm area of erythema with a small shallow white based ulceration. A biopsy was obtained. 3. Mild patchy erythema in the antrum -- no evidence of bleeding. 4. Otherwise, normal appearing stomach with no fresh or old blood noted. 5. Normal appearing duodenal bulb and duodenum. The patient tolerated the procedure well without immediate complication. IMPRESSION: 1. Healing proximal gastric ulcer -- biopsied. 2. Mild patchy erythema in the antrum. 3. Otherwise normal upper endoscopy with no evidence of fresh or recent bleeding. PLAN: 1. Monitor H and H and transfuse as needed. 2. Continue chronic proton pump inhibitors. 3. Resume Plavix. 4. If has further evidence of bleeding, may need colonoscopy if okay with Cardiology, and possibly even a PillCam. JOB# [id number] HRC/NTS
[2019-03-02] MEDS: CORDARONE PO SCH (15:25)
[2019-03-02] MEDS: PLAVIX PO SCH (15:25)
[2019-03-02] MEDS: MAG-OX PO SCH (15:25)
[2019-03-02] MEDS: COLACE PO SCH ×2 (15:26→22:26)
[2019-03-02] MEDS: HALFPRIN EC PO SCH (15:26)
--- NOTE | 2019-03-02 17:34 | Discharge Summary ---
Providers - Providers Date of Admission: 02/27/19 21:34 Date of discharge: 03/02/19 Attending physician: ALVIN BURKS 02/27/19 21:19 Consult to Physician [CONS] Stat Comment: Consulting Provider: EZIO PAYTON Physician Instructions: Reason For Exam: gi bleed 02/28/19 05:23 Consult to Physician [CONS] Routine Comment: Consulting Provider: LIVIER TALAMANTES Physician Instructions: Reason For Exam: chest pain with hx of G.I bleed and pace maker Primary care physician: REIMBURSEMENT ANALYST Hospitalization Condition: Stable Pertinent studies: EGD which showed healing gastric ulcer. Echocardiogram ejection fraction of 15- 20%. Hospital course: Patient presented with symptomatic anemia for active GI bleed. Patient H&H was low requiring 6 units packed red blood cells for transfusion. No further episodes of bleeding. Patient had echocardiogram to rule out CHF exacerbation. Patient had EF of 15% was on milrinone chronic. Patient had to have a cardiac clearance to perform EGD. EGD was performed and showed healing gastric ulcer. Otherwise no further episodes of bleeding. Would discharge home with proton pump inhibitor. Has has COPD systolic CHF treat with milrinone at home. She had a and was going to sign out AMA or be discharge and will discharge her for a few more think she is stable to go home. H&H has remained stable. Disposition: - TO HOME OR SELFCARE - Discharge Diagnoses (1) Back pain Status: Acute Qualifiers: Back pain location: low back pain Chronicity: chronic Back pain laterality: bilateral Comment: chronic (2) GI bleed Status: Acute Comment: healing gastric ulcer (3) NSTEMI (non-ST elevated myocardial infarction) Status: Resolved (4) CAD S/P percutaneous coronary angioplasty Status: Chronic (5) HFrEF (heart failure with reduced ejection fraction) Status: Chronic Qualifiers: Heart failure chronicity: acute on chronic Qualified Code(s): I50.23 - Acute on chronic systolic (congestive) heart failure Comment: ef 15% on milronine (6) HTN (hypertension) Status: Chronic (7) Hemiparesis due to old cerebrovascular accident Status: Chronic Core Measure Documentation - Palliative Care Palliative Care/ Comfort Measures: Not Applicable - Core Measures Any of the following diagnoses?: heart failure - Heart Failure Discharge Requirements DOREEN/ARB for LVSD if EF <40%: Yes Beta mark at discharge: Yes Exam - Constitutional Vitals: Temp Pulse Resp BP Pulse Ox 97.4 F L 84 18 118/66 99 03/02/19 16:27 03/02/19 16:26 03/02/19 16:26 03/02/19 16:26 03/02/19 16:26 General appearance: Present: no acute distress, well-nourished - EENT Eyes: Present: PERRL ENT: hearing intact, clear oral mucosa - Neck Neck: Present: supple, normal ROM - Respiratory Respiratory effort: normal Respiratory: bilateral: CTA - Cardiovascular Heart Sounds: Present: S1 & S2. Absent: rub, click - Extremities Extremities: pulses symmetrical, No edema Peripheral Pulses: within normal limits - Abdominal General gastrointestinal: Present: soft, non-tender, non-distended, normal bowel sounds Female genitourinary: Present: normal - Integumentary Integumentary: Present: clear, warm, dry - Musculoskeletal Musculoskeletal: gait normal, strength equal bilaterally - Psychiatric Psychiatric: appropriate mood/affect, intact judgment & insight - Neurologic Neurologic: CNII-XII intact, moves all extremities Plan Diet: low salt Special Instructions: restrict fluid intake to (1.5), record daily BP diary Follow up with: PRIMARY CARE, [Primary Care Provider] - 3-5 Days Prescriptions: hydrALAZINE [Apresoline TAB] 10 mg PO Q8H #20 tablet Aspirin EC [Aspirin Enteric Coated TAB] 81 mg PO DAILY #30 tablet Bumetanide [Bumex 1 mg tab] 1 mg PO QDAY #30 tablet Calcium Acetate 667 mg PO TID #90 Docusate Sodium [Colace CAP] 100 mg PO BID #60 capsule Carvedilol [Coreg] 3.125 mg PO BID #60 tablet Losartan [Cozaar] 12.5 mg PO QDAY #30 tablet hydrOXYzine HCl [Hydroxyzine HCl] 25 mg PO TID #90 tablet Insulin Glargine [Lantus VIAL] 30 units SUB-Q DAILY 30 Days #1 units AtorvaSTATin [Lipitor] 80 mg PO DAILY #20 tablet Magnesium Oxide 400 mg PO DAILY #30 tablet oxyCODONE /ACETAMINOPHEN [Percocet 5/325 mg] 1 tab PO Q8H PRN #6 tablet PRN Reason: Pain, Moderate (4-6) Clopidogrel [Plavix] 75 mg PO DAILY #30 tablet Clopidogrel [Plavix] 75 mg PO QDAY #30 tablet Levothyroxine [Synthroid] 25 mcg PO DAILY #30 tablet
[2019-03-02] MEDS ORDERED: TYLENOL PO PRN (20:33)
[2019-03-02] MEDS: PEPCID PO SCH (23:25)
[2019-03-03] MEDS: MILRINONE-D5W 20 MG/100 ML 20 MG/100 ML BAG IV SCH (04:11)
[2019-03-03] MEDS: SYNTHROID PO SCH (06:02)
[2019-03-03] MEDS: PHOSLO PO SCH ×2 (09:30→13:50)
[2019-03-03] MEDS: PLAVIX PO SCH (09:30)
[2019-03-03] MEDS: NEURONTIN PO SCH ×2 (09:31→13:50)
[2019-03-03] MEDS: HALFPRIN EC PO SCH (09:31)
[2019-03-03] MEDS: COLACE PO SCH (09:31)
[2019-03-03] MEDS: MAG-OX PO SCH (09:32)
[2019-03-03] MEDS: ATARAX PO SCH ×2 (09:32→13:50)
[2019-03-03] MEDS: BUMEX PO SCH (09:32)
[2019-03-03] MEDS: PEPCID PO SCH (09:32)
[2019-03-03] MEDS: CORDARONE PO SCH (09:33)
[2019-03-03] MEDS: LANTUS SUB-Q SCH (09:34)
[2019-03-03] MEDS: COZAAR PO SCH (09:35)
[2019-03-03] MEDS: COREG PO SCH (09:35)
--- NOTE | 2019-03-03 11:51 | Progress Note ---
Assessment and Plan Assessment and plan: GI bleed/melena. Patient with EGD yesterday that revealed 2 cm area of erythema with what appears to be healing shallow small ulcer, biopsied. No stigmata of bleeding. Acute on chronic HFrEF. Ischemic cardiomyopathy. Continue current cardiac management. Cardiology following. Continue IV milrinone. Coronary artery disease. Patient status post percutaneous coronary angioplasty. AICD in situ. Hypertension. Continue antihypertensive medications. History Interval history: No new issues overnight. Hospitalist Physical - Constitutional Vitals: Temp Pulse Resp BP Pulse Ox 97.5 F L 84 20 100/57 96 03/03/19 08:39 03/03/19 10:00 03/03/19 10:00 03/03/19 08:38 03/03/19 09:14 General appearance: Present: no acute distress, well-nourished - EENT Eyes: Present: PERRL, EOM intact ENT: hearing intact, clear oral mucosa, dentition normal - Neck Neck: Present: supple, normal ROM - Respiratory Respiratory effort: normal Respiratory: bilateral: CTA - Cardiovascular Rhythm: regular Heart Sounds: Present: S1 & S2. Absent: gallop, rub - Extremities Extremities: no ischemia, No edema, Full ROM - Abdominal General gastrointestinal: soft, non-tender, non-distended, normal bowel sounds - Integumentary Integumentary: Present: clear, warm, dry - Neurologic Neurologic: CNII-XII intact, moves all extremities Results - Labs CBC & Chem 7: 03/02/19 05:22 03/03/19 07:50 Labs: Laboratory Last Values WBC 6.4 K/mm3 (4.5-11.0) 03/02/19 05:22 RBC 2.92 M/mm3 (3.65-5.03) L 03/02/19 05:22 Hgb 9.2 gm/dl (10.1-14.3) L 03/02/19 05:22 Hct 26.8 % (30.3-42.9) L 03/02/19 05:22 MCV 92 fl (79-97) 03/02/19 05:22 MCH 32 pg (28-32) 03/02/19 05:22 MCHC 34 % (30-34) 03/02/19 05:22 RDW 15.8 % (13.2-15.2) H 03/02/19 05:22 Plt Count 187 K/mm3 (140-440) 03/02/19 05:22 Lymph % (Auto) 16.4 % (13.4-35.0) 03/01/19 07:21 [place] % (Auto) 5.3 % (0.0-7.3) 03/01/19 07:21 Eos % (Auto) 2.4 % (0.0-4.3) 03/01/19 07:21 Baso % (Auto) 0.4 % (0.0-1.8) 03/01/19 07:21 Lymph # 1.1 K/mm3 (1.2-5.4) L 03/01/19 07:21 [place] # 0.4 K/mm3 (0.0-0.8) 03/01/19 07:21 Eos # 0.2 K/mm3 (0.0-0.4) 03/01/19 07:21 Baso # 0.0 K/mm3 (0.0-0.1) 03/01/19 07:21 Seg Neutrophils % 75.5 % (40.0-70.0) H 03/01/19 07:21 Seg Neutrophils # 5.2 K/mm3 (1.8-7.7) 03/01/19 07:21 PT 15.2 Sec. (12.2-14.9) H 02/27/19 19:30 INR 1.13 (0.87-1.13) 02/27/19 19:30 APTT 23.6 Sec. (24.2-36.6) L 02/27/19 19:30 Sodium 139 mmol/L (137-145) 03/01/19 07:21 Potassium 4.3 mmol/L (3.6-5.0) 03/01/19 07:21 Chloride 106.4 mmol/L (98-107) 03/01/19 07:21 Carbon Dioxide 23 mmol/L (22-30) 03/01/19 07:21 Anion Gap 14 mmol/L 03/01/19 07:21 BUN 12 mg/dL (7-17) 03/01/19 07:21 Creatinine 0.6 mg/dL (0.7-1.2) L 03/01/19 07:21 Estimated GFR > 60 ml/min 03/01/19 07:21 BUN/Creatinine Ratio 20 % 03/01/19 07:21 Glucose 100 mg/dL (65-100) 03/03/19 07:50 POC Glucose 130 (70-105) H 03/03/19 08:16 Calcium 7.6 mg/dL (8.4-10.2) L 03/01/19 07:21 Total Bilirubin 0.50 mg/dL (0.1-1.2) 03/01/19 07:21 AST 35 units/L (5-40) 03/01/19 07:21 ALT 17 units/L (7-56) 03/01/19 07:21 Alkaline Phosphatase 58 units/L (35-129) 03/01/19 07:21 Total Creatine Kinase 293 units/L (30-135) H 02/28/19 13:49 CK-MB (CK-2) 44.2 ng/mL (0.0-4.0) H 02/28/19 13:49 CK-MB (CK-2) Rel Index 15.0 (0-4) H 02/28/19 13:49 Troponin T 0.296 ng/mL (0.00-0.029) H* D 03/02/19 05:22 NT-Pro-B Natriuret Pep 1649 pg/mL (0-900) H 02/27/19 19:30 Total Protein 5.7 g/dL (6.3-8.2) L 03/01/19 07:21 Albumin 3.3 g/dL (3.9-5) L 03/01/19 07:21 Albumin/Globulin Ratio 1.4 % 03/01/19 07:21 Triglycerides 91 mg/dL (2-149) 02/28/19 05:59 Cholesterol 112 mg/dL (50-199) 02/28/19 05:59 LDL Cholesterol Direct 64 mg/dL (50-130) 02/28/19 05:59 HDL Cholesterol 36 mg/dL (40-59) L 02/28/19 05:59 Cholesterol/HDL Ratio 3.11 % 02/28/19 05:59 Blood Type O POSITIVE 02/27/19 20:35 Antibody Screen Negative 02/27/19 20:35 Crossmatch See Detail 02/27/19 20:35 Active Medications - Current Medications Current Medications: Generic Name Dose Route Start Last Admin Trade Name Freq PRN Reason Stop Dose Admin Acetaminophen 650 mg 03/02/19 20:33 Tylenol PO Q6H PRN Pain, Mild (1-3) Albuterol 2.5 mg 02/28/19 22:38 Proventil IH Q4HRT PRN Shortness Of Breath Amiodarone HCl 400 mg 03/01/19 10:00 03/03/19 09:33 Cordarone PO 400 mg DAILY [facility] Administration Aspirin 81 mg 03/01/19 10:00 03/03/19 09:31 Halfprin Ec PO 81 mg DAILY [facility] Administration Atorvastatin Calcium 80 mg 03/01/19 10:00 03/03/19 09:31 Lipitor PO 80 mg DAILY [facility] Administration Bumetanide 1 mg 03/01/19 10:00 03/03/19 09:32 Bumex PO 1 mg QDAY [facility] Administration Calcium Acetate 667 mg 03/01/19 08:00 03/03/19 09:30 Phoslo PO 667 mg TIDWM [facility] Administration Carvedilol 3.125 mg 03/01/19 10:00 03/03/19 09:35 Coreg PO Not Given BID [facility] Clopidogrel Bisulfate 75 mg 03/01/19 10:00 03/03/19 09:30 Plavix PO 75 mg DAILY [facility] Administration Docusate Sodium 100 mg 03/01/19 10:00 03/03/19 09:31 Colace PO 100 mg BID [facility] Administration Famotidine 20 mg 03/02/19 23:00 03/03/19 09:32 Pepcid PO 20 mg BID [facility] Administration Gabapentin 600 mg 02/28/19 23:00 03/03/19 09:31 Neurontin PO 600 mg TID [facility] Administration Hydroxyzine HCl 25 mg 03/01/19 08:00 03/03/19 09:32 Atarax PO 25 mg TID [facility] Administration Pantoprazole Sodium 80 mg/ 100 mls @ 10 mls/hr 02/27/19 21:00 03/02/19 03:00 Sodium Chloride IV 8 mg/hr DIRECT [facility] 10 mls/hr Administration 8 MG/HR Sodium Chloride 1,000 mls @ 50 mls/hr 02/28/19 13:00 03/02/19 23:27 Nacl 0.9% 1000 Ml IV 50 mls/hr DIRECT [facility] Administration Milrinone Lactate/Dextrose 20 mg in 100 mls @ 6.03 mls/hr 02/28/19 12:00 03/03/19 04:11 Milrinone-D5w 20 Mg/100 Ml IV 0.25 mcg/kg/min TITR [facility] 4.763 mls/hr Administration 0.25 MCG/KG/MIN Insulin Glargine 30 units 03/01/19 10:00 03/03/19 09:34 Lantus SUB-Q Not Given DAILY [facility] Levothyroxine Sodium 25 mcg 03/01/19 06:00 03/03/19 06:02 Synthroid PO 25 mcg DAILY@0600 [facility] Administration Lorazepam 1 mg 02/27/19 22:10 Ativan IV Q4H PRN Anxiety Losartan Potassium 12.5 mg 03/01/19 10:00 03/03/19 09:35 Cozaar PO Not Given QDAY [facility] Magnesium Oxide 400 mg 03/01/19 10:00 03/03/19 09:32 Mag-Ox PO 400 mg DAILY [facility] Administration Nitroglycerin 0.4 mg 02/28/19 05:12 Nitrostat SL .Q5MIN PRN Chest Pain Ondansetron HCl 4 mg 02/27/19 22:11 Zofran IV Q8H PRN Nausea And Vomiting Oxycodone/Acetaminophen 1 tab 03/01/19 12:34 03/03/19 04:31 Percocet 5/325 PO 1 tab Q6H PRN Administration Pain, Moderate (4-6)
--- NOTE | 2019-03-03 12:59 | Progress Note ---
Assessment and Plan Patient is feeling better. Waiting for the milrinone outpatient drip. Overall cardiac status appears to be stable. Severe ischemic cardiomyopathy with ejection fraction of less than 10%. Continue current management. Overall cardiac prognosis is guarded. - Patient Problems (1) Acute HFrEF (heart failure with reduced ejection fraction) Current Visit: Yes Status: Chronic (2) CAD S/P percutaneous coronary angioplasty Current Visit: Yes Status: Chronic (3) NSTEMI (non-ST elevated myocardial infarction) Current Visit: Yes Status: Resolved (4) HTN (hypertension) Current Visit: No Status: Chronic (5) Ischemic cardiomyopathy Current Visit: No Status: Chronic (6) Stented coronary artery Current Visit: No Status: Chronic Subjective Date of service: 03/03/19 Principal diagnosis: GI bleed; HF; NSTEMI Interval history: Prior notes noted. Endoscopy report is noted. Patient is comfortable today. No significant chest pain or difficulty breathing. Objective Vital Signs Temp Pulse Pulse Pulse Resp Resp BP 03/03/19 10:00 84 78 20 20 03/03/19 09:14 03/03/19 08:39 97.5 F L 03/03/19 08:38 74 20 100/57 03/03/19 05:31 18 03/03/19 04:31 18 03/03/19 04:23 98.4 F 77 18 103/54 03/02/19 23:46 97.9 F 80 18 118/65 03/02/19 22:26 81 119/68 03/02/19 21:51 81 81 18 03/02/19 20:00 98.1 F 81 18 03/02/19 19:19 81 03/02/19 16:27 97.4 F L 03/02/19 16:26 84 18 118/66 03/02/19 14:40 79 22 108/88 03/02/19 14:29 78 22 126/53 03/02/19 14:13 97.7 F 80 16 128/60 BP Pulse Ox 03/03/19 10:00 100 03/03/19 09:14 96 03/03/19 08:39 03/03/19 08:38 100 03/03/19 05:31 03/03/19 04:31 03/03/19 04:23 98 03/02/19 23:46 100 03/02/19 22:26 03/02/19 21:51 98 03/02/19 20:00 119/68 98 03/02/19 19:19 03/02/19 16:27 03/02/19 16:26 99 03/02/19 14:40 94 03/02/19 14:29 96 03/02/19 14:13 95 - Physical Examination General: No Apparent Distress HEENT: Positive: PERRL, Normocephaly, Mucus Membranes Moist Neck: Positive: neck supple, trachea midline Cardiac: Positive: Reg Rate and Rhythm, Systolic Murmur Lungs: Positive: clear to auscultation Neuro: Positive: Grossly Intact Abdomen: Negative: Tender Skin: Negative: Rash, Wound Musculoskeletal: No Pain Extremities: Present: +1 Edema - Labs and Meds Comprehensive Metabolic Panel 03/03/19 Range/Units 07:50 Glucose 100 (65-100) mg/dL - Imaging and Cardiology EKG: report reviewed AV and intraventricular conduction: intraventricular conducti
[2019-03-03 13:09] VITALS: BP 117/70
--- NOTE | 2019-03-03 14:48 | Progress Note ---
Assessment and Plan 1. Anemia/melena - c/w GI bleed, due to PUD, which is healing based on EGD. No evidence of ongoing bleed. - monitor H/H, and if continues to drop, and has ongoing evidence of bleed, may need to consider colonoscopy - high risk with LVEF < 10%. - okay to use anticoagulation if H/H stable and no further bleeding noted. - cont PPI 2. Back pain - defer to Hospitalist. Discussed with Dr. Sosa and with Dr. Simon. Subjective Date of service: 03/03/19 Principal diagnosis: GI bleed; HF; NSTEMI Interval history: Pt doing well. No abd pain, no GI bleed. No CP or SOB. Objective - Constitutional Vitals: Vital Signs - 12hr 03/03/19 03/03/19 03/03/19 04:23 04:31 05:31 Temperature 98.4 F Pulse Rate 77 Pulse Rate [ Apical] Respiratory 18 18 18 Rate Respiratory Rate [Chest] Blood Pressure 103/54 O2 Sat by Pulse 98 Oximetry 03/03/19 03/03/19 03/03/19 08:38 08:39 09:14 Temperature 97.5 F L Pulse Rate 74 Pulse Rate [ Apical] Respiratory 20 Rate Respiratory Rate [Chest] Blood Pressure 100/57 O2 Sat by Pulse 100 96 Oximetry 03/03/19 03/03/19 03/03/19 10:00 13:06 13:09 Temperature 97.4 F L Pulse Rate 84 83 Pulse Rate [ 78 Apical] Respiratory 20 18 Rate Respiratory 20 Rate [Chest] Blood Pressure 117/70 O2 Sat by Pulse 100 99 Oximetry General appearance: Present: no acute distress - EENT Eyes: PERRL, EOM intact ENT: hearing intact Ears: bilateral: normal - Respiratory Respiratory effort: normal - Cardiovascular Rhythm: regular Heart Sounds: Present: S1 & S2 - Gastrointestinal General gastrointestinal: Present: soft, non-tender - Labs CBC & Chem 7: 03/02/19 05:22 03/03/19 07:50 Labs: Abnormal lab results 03/03/19 03/03/19 Range/Units 07:27 08:16 POC Glucose 53 L 130 H (70-105) Medications & Allergies - Medications Allergies/Adverse Reactions: Allergies No Known Allergies Allergy (Unverified 08/27/18 09:22) Home Medications: Home Medications Medication Instructions Recorded Confirmed Last Taken Type Amiodarone HCl [Pacerone] 400 mg PO DAILY 08/27/18 02/27/19 09/28/18 History Docusate Sodium [Stool Softener] 100 mg PO BID 08/27/18 02/27/19 09/28/18 History Losartan Potassium 12.5 mg PO DAILY 08/27/18 02/27/19 09/28/18 History Pantoprazole Sodium 40 mg PO DAILY 08/27/18 02/27/19 09/28/18 History Spironolactone 25 mg PO DAILY 08/27/18 02/27/19 09/28/18 History ALBUTEROL NEB's [Proventil 0.083% 2.5 mg IH Q4HRT PRN #30 nebu 10/06/18 02/27/19 Unknown Rx NEBS] Gabapentin [Neurontin] 600 mg PO TID #90 tablet 10/06/18 02/27/19 Unknown Rx Isosorbide Dinitrate [Isordil 10 mg PO TID 02/27/19 02/27/19 Unknown History Titradose] Acetaminophen [Acetaminophen 650 mg MN Q4H PRN supp.rect 03/02/19 Unknown Rx SUPPOS] Aspirin EC [Aspirin Enteric Coated 81 mg PO DAILY #30 tablet 03/02/19 Unknown Rx TAB] AtorvaSTATin [Lipitor] 80 mg PO DAILY #20 tablet 03/02/19 Unknown Rx Bumetanide [Bumex 1 mg tab] 1 mg PO QDAY #30 tablet 03/02/19 Unknown Rx Calcium Acetate 667 mg PO TID #90 03/02/19 Unknown Rx Carvedilol [Coreg] 3.125 mg PO BID #60 tablet 03/02/19 Unknown Rx Clopidogrel [Plavix] 75 mg PO DAILY #30 tablet 03/02/19 Unknown Rx Clopidogrel [Plavix] 75 mg PO QDAY #30 tablet 03/02/19 Unknown Rx Docusate Sodium [Colace CAP] 100 mg PO BID #60 capsule 03/02/19 Unknown Rx Insulin Glargine [Lantus VIAL] 30 units SUB-Q DAILY 30 Days #1 03/02/19 Unknown Rx units Levothyroxine [Synthroid] 25 mcg PO DAILY #30 tablet 03/02/19 Unknown Rx Losartan [Cozaar] 12.5 mg PO QDAY #30 tablet 03/02/19 Unknown Rx Magnesium Oxide 400 mg PO DAILY #30 tablet 03/02/19 Unknown Rx hydrALAZINE [Apresoline TAB] 10 mg PO Q8H #20 tablet 03/02/19 Unknown Rx hydrOXYzine HCl [Hydroxyzine HCl] 25 mg PO TID #90 tablet 03/02/19 Unknown Rx oxyCODONE /ACETAMINOPHEN [Percocet 1 tab PO Q8H PRN #6 tablet 03/02/19 Unknown Rx 5/325 mg] Active Medications: Generic Name Dose Route Start Last Admin Trade Name Freq PRN Reason Stop Dose Admin Acetaminophen 650 mg 03/02/19 20:33 Tylenol PO Q6H PRN Pain, Mild (1-3) Albuterol 2.5 mg 02/28/19 22:38 Proventil IH Q4HRT PRN Shortness Of Breath Amiodarone HCl 400 mg 03/01/19 10:00 03/03/19 09:33 Cordarone PO 400 mg DAILY MARILUZ Administration Aspirin 81 mg 03/01/19 10:00 03/03/19 09:31 Halfprin Ec PO 81 mg DAILY MARILUZ Administration Atorvastatin Calcium 80 mg 03/01/19 10:00 03/03/19 09:31 Lipitor PO 80 mg DAILY [facility]Z Administration Bumetanide 1 mg 03/01/19 10:00 03/03/19 09:32 Bumex PO 1 mg QDAY MARILUZ Administration Calcium Acetate 667 mg 03/01/19 08:00 03/03/19 13:50 Phoslo PO 667 mg TIDWM MARILUZ Administration Carvedilol 3.125 mg 03/01/19 10:00 03/03/19 09:35 Coreg PO Not Given BID MAR[facility]UZ Clopidogrel Bisulfate 75 mg 03/01/19 10:00 03/03/19 09:30 Plavix PO 75 mg DAILY MARILUZ Administration Docusate Sodium 100 mg 03/01/19 10:00 03/03/19 09:31 Colace PO 100 mg BID MARILUZ Administration Famotidine 20 mg 03/02/19 23:00 03/03/19 09:32 Pepcid PO 20 mg BID MAR[facility]UZ Administration Gabapentin 600 mg 02/28/19 23:00 03/03/19 13:50 Neurontin PO 600 mg TID MAR[facility]UZ Administration Hydroxyzine HCl 25 mg 03/01/19 08:00 03/03/19 13:50 Atarax PO 25 mg TID [facility]Z Administration Pantoprazole Sodium 80 mg/ 100 mls @ 10 mls/hr 02/27/19 21:00 03/02/19 03:00 Sodium Chloride IV 8 mg/hr DIRECT MARILUZ 10 mls/hr Administration 8 MG/HR Sodium Chloride 1,000 mls @ 50 mls/hr 02/28/19 13:00 03/02/19 23:27 Nacl 0.9% 1000 Ml IV 50 mls/hr DIRECT [facility]UZ Administration Milrinone Lactate/Dextrose 20 mg in 100 mls @ 6.03 mls/hr 02/28/19 12:00 03/03/19 04:11 Milrinone-D5w 20 Mg/100 Ml IV 0.25 mcg/kg/min TITR [facility]Z 4.763 mls/hr Administration 0.25 MCG/KG/MIN Insulin Glargine 30 units 03/01/19 10:00 03/03/19 09:34 Lantus SUB-Q Not Given DAILY [facility] Levothyroxine Sodium 25 mcg 03/01/19 06:00 03/03/19 06:02 Synthroid PO 25 mcg DAILY@0600 [facility] Administration Lorazepam 1 mg 02/27/19 22:10 Ativan IV Q4H PRN Anxiety Losartan Potassium 12.5 mg 03/01/19 10:00 03/03/19 09:35 Cozaar PO Not Given QDAY [facility] Magnesium Oxide 400 mg 03/01/19 10:00 03/03/19 09:32 Mag-Ox PO 400 mg DAILY [facility] Administration Nitroglycerin 0.4 mg 02/28/19 05:12 Nitrostat SL .Q5MIN PRN Chest Pain Ondansetron HCl 4 mg 02/27/19 22:11 Zofran IV Q8H PRN Nausea And Vomiting Oxycodone/Acetaminophen 1 tab 03/01/19 12:34 03/03/19 04:31 Percocet 5/325 PO 1 tab Q6H PRN Administration Pain, Moderate (4-6)
[2019-03-03 15:32] LABS: Hematocrit 28.2 % (30.3-42.9); Hemoglobin 9.6 gm/dl (10.1-14.3); Mean Corpuscular HGB Conc 34 % (30-34); Mean Corpuscular Volume 93 fl (79-97); Platelet Count 215 K/mm3 (140-440); Red Blood Count 3.04 M/mm3 (3.65-5.03); Red Cell Distribution Width 16.4 % (13.2-15.2)
== END 2019-03-03 18:31 | disposition home or self-care (01) | DRG 280 ==
LOC: ED 18:15 → 4A 21:34
PROVIDERS: ADMIT Internal Medicine; ATTEND Hospitalist
PROC: 30233N1 Transfusion of Nonautologous Red Blood Cells into Peripheral Vein, Percutaneous Approach (ICD-10-PCS; 2019-02-28)
PROC: 0DB68ZX Excision of Stomach, Via Natural or Artificial Opening Endoscopic, Diagnostic (ICD-10-PCS; principal; 2019-03-02)
DX: I21.4 Non-ST elevation (NSTEMI) myocardial infarction (principal); I50.23 Acute on chronic systolic (congestive) heart failure; K27.4 Chronic or unspecified peptic ulcer, site unspecified, with hemorrhage; I11.0 Hypertensive heart disease with heart failure; M54.9 Dorsalgia, unspecified; J44.9 Chronic obstructive pulmonary disease, unspecified; I25.10 Atherosclerotic heart disease of native coronary artery without angina pectoris; G89.29 Other chronic pain; F41.9 Anxiety disorder, unspecified; I25.5 Ischemic cardiomyopathy; E78.5 Hyperlipidemia, unspecified; E03.9 Hypothyroidism, unspecified; D62 Acute posthemorrhagic anemia; M47.897 Other spondylosis, lumbosacral region; Z95.810 Presence of automatic (implantable) cardiac defibrillator; Z95.5 Presence of coronary angioplasty implant and graft; Z99.81 Dependence on supplemental oxygen; I69.359 Hemiplegia and hemiparesis following cerebral infarction affecting unspecified side; Z79.899 Other long term (current) drug therapy; Z79.82 Long term (current) use of aspirin; Z82.49 Family history of ischemic heart disease and other diseases of the circulatory system
CPT/HCPCS: 36415; 36430; 71045; 80048; 80053; 80061; 82550; 82553; 82947; 82962; 83880; 84484; 85014; 85018; 85025; 85027; 85610; 85730; 86850; 86900; 86901; 86920; 88305; 88342; 93005; 93010; 93306; 94760; G0378; A9270-GY; C9113; J1815; J2060; J2260; J2704; J7030; J7040; P9016